=== PATIENT | female | born 1950 | race Caucasian/White ===

== ENCOUNTER 2018-08-25 10:35 | Outpatient (CLI) | payer BC, SELFPAY ==
[2018-08-25 13:50] LABS: Cholesterol 230 mg/dL (50-200); HDL Cholesterol 80 mg/dL (40-60); LDL CHOLESTEROL 131 mg/dL (<100); Triglyceride 103 mg/dL (30-150)
== END 2018-08-25 10:55 ==
PROVIDERS: PCP Family Medicine; Visit Provider Family Medicine
DX: I10 Essential (primary) hypertension (principal); Z00.00 Encounter for general adult medical examination without abnormal findings
CPT/HCPCS: 36415; 80061; 83721

== ENCOUNTER 2018-09-03 00:40 | Outpatient (CLI) | payer BC, SELFPAY ==
--- NOTE | 2018-09-03 15:47 | DI.MAMMO_ITS ---
SYMPTOMS/DIAGNOSIS: SCREENING, Z12.31 MAMMOGRAMS: Mammograms were interpreted according to the usual protocol including computer analysis with CAD system, tomosynthesis and C view imaging. Comparison is with the prior examinations. No suspicious masses or microcalcifications are seen. In the right breast, there is an asymmetric density in the inferior retroareolar region on the mediolateral oblique view. This area should be further evaluated with a spot compression view. Ultrasound may be indicated at that time. IMPRESSION: Additional views of the right breast as described above. Category 0, breast density B. MQSA ASSESSMENT OF FINDINGS: Incomplete: Needs additional imaging evaluation. Category 0. Patient will receive a letter notifying them of these results. BI-RADS category B. There are scattered areas of fibroglandular density.
== END 2018-09-03 01:00 ==
PROVIDERS: PCP Family Medicine; Visit Provider Family Medicine
DX: Z12.31 Encounter for screening mammogram for malignant neoplasm of breast (principal); R92.8 Other abnormal and inconclusive findings on diagnostic imaging of breast
CPT/HCPCS: 77063; 77067

== ENCOUNTER 2018-09-10 01:18 | Outpatient (CLI) | payer BC, SELFPAY ==
--- NOTE | 2018-09-10 13:45 | DI.COMBO_ITS ---
SYMPTOMS/DIAGNOSIS: F/U ABNORMAL MAMMO, ASYMMETRIC DENSITY ADDITIONAL VIEWS OF THE RIGHT BREAST AND RIGHT BREAST ULTRASOUND: A follow-up medial and lateral compression spot film of the right breast was obtained today. Nonspecific radiodensities are identified. No discrete mass is seen. At ultrasound, no cyst or mass is identified. SUMMARY: No evidence of malignancy, category 1. Yearly screening mammography is recommended. Breast density category B. MQSA ASSESSMENT OF FINDINGS: Negative. Category 1. Patient will receive a letter notifying them of these results. BI-RADS category B. There are scattered areas of fibroglandular density.
== END 2018-09-10 01:38 ==
PROVIDERS: PCP Family Medicine; Visit Provider Family Medicine
DX: Z12.31 Encounter for screening mammogram for malignant neoplasm of breast (principal); R92.8 Other abnormal and inconclusive findings on diagnostic imaging of breast; N64.59 Other signs and symptoms in breast
CPT/HCPCS: 76642; 77063; 77067

== ENCOUNTER 2019-04-14 08:47 | Outpatient (CLI) | payer BC, SELFPAY ==
[2019-04-14 11:42] LABS: ALT 40 U/L (12-78); AST 21 U/L (15-37); Albumin 3.9 g/dL (3.4-5.0); Alkaline Phosphatase 81 U/L (46-116); Anion Gap 11.5 mmol/L (3-11); BUN 20 mg/dL (7-18); Bilirubin, Total 0.6 mg/dL (0.2-1.0); CO2 26.5 mmol/L (21.0-32.0); CREATININE 0.72 mg/dL (0.55-1.02); Calcium 8.7 mg/dL (8.5-10.1); Calculated LDL 151 mg/dL; Chloride 103 mmol/L (98-107); Cholesterol 252 mg/dL (50-200); Glucose 98 mg/dL (70-100); HDL Cholesterol 82 mg/dL (40-60); Potassium 4.2 mmol/L (3.5-5.1); Sodium 141 mmol/L (136-145); Triglyceride 99 mg/dL (30-150)
== END 2019-04-14 09:07 ==
PROVIDERS: PCP Family Medicine; Visit Provider Family Medicine
DX: I10 Essential (primary) hypertension (principal)
CPT/HCPCS: 36415; 80053; 80061; 83721

== ENCOUNTER 2019-07-03 00:18 | Outpatient (CLI) | payer BC, SELFPAY ==
--- NOTE | 2019-07-03 08:35 | DI.RAD_ITS ---
EXAM: XR HIP RT COMPLETE AP PELVIS INDICATION: r hip pain, M25.559. COMPARISON: RIGHT HIP COMPLETE from 08/27/2011 TECHNIQUE: 2D digital imaging was performed. FINDINGS: Severe DJD involving the right hip is demonstrated. There is joint space narrowing, articular scler osis and periarticular hypertrophic spurring. There is no evidence of a fracture or dislocation.
== END 2019-07-03 00:38 ==
PROVIDERS: PCP Family Medicine; Visit Provider Family Medicine
DX: M25.551 Pain in right hip (principal); M16.11 Unilateral primary osteoarthritis, right hip
CPT/HCPCS: 73502

== ENCOUNTER 2019-07-17 06:59 | Day surgery (SDC) | payer BC, SELFPAY ==
[2019-07-17 07:14] VITALS: BP 154/83; PULSE 72; RESP 16; TEMP 35.8; O2SAT 97
[2019-07-17] MEDS: Lactated Ringers 1,000 ML 80 ML IV (07:37)
--- NOTE | 2019-07-17 07:59 | HPE_ITS ---
Date of service: 07/17/19 Time of Service: 07:59 Assessment and Plan Assessment and plan (1) Polyp of colon: Status: Chronic Assessment and plan: I advised colonoscopy. The procedure was described including the risks of perforation with need for surgery or bleeding. Prep instructions discussed. Patient agrees to proceed. History of Present Illness Narrative: 68 y/o female with history of HTN, Diverticulosis, GERD and hiatal hernia presents for colonoscopy screening. Her last screening was in 2013, which was remarkable for polyp. With recommended follow up in 5 years. She denies a family history of colon cancer. She denies any changes in bowel habits, stating that she has IBS and her BMs have always fluctuated based on what she eats. Denies bloody, black tarry stools or abdominal pain. She denies constitutional symptoms. Denies use of marijuana or any other recreational or illegal drugs. She denies chest pain, palpitations, dyspnea or dyspnea with exertion. She walks and bikes regularly for exercise. She uses Spirva inhaler PRN with good effect. She denies prior history or family history of adverse reactions or complications with anesthesia. Review of Systems Constitutional Constitutional: Denies fatigue and Denies headache(s) Eyes Eyes: Denies change in vision ENT Ears, Nose, Mouth, and Throat: Denies headache(s) and Denies neck mass Cardiovascular Cardiovascular: Denies chest pain, Denies edema, Denies palpitations and Denies dyspnea Respiratory Respiratory: Denies cough, Denies dyspnea and Denies wheezing Gastrointestinal Gastrointestinal: Denies abdominal pain, Denies hematochezia and Denies change in bowel habits Genitourinary Genitourinary: Denies abnormal vaginal bleeding and Denies dysuria Musculoskeletal Musculoskeletal: Denies joint swelling Integumentary/Breasts Skin/Breast: Denies new lesions and Denies rash Neurologic Neurologic: Denies confusion, Denies headache(s) and Denies focal weakness Psychiatric Psychiatric: Reports system reviewed and no additional complaints, except as docu and Denies confusion Endocrine Endocrine: Denies fatigue and Denies palpitations Hematologic/Lymphatic Hematologic/Lymphatic: Denies easy bleeding and Denies lymphadenopathy Allergic/Immunologic Allergic/Immunologic: Denies wheezing [facility] Medical History Actinic keratosis (Chronic 03/11/17) Anxiety (Chronic 10/27/13) Bilateral carpal tunnel syndrome (Inactive 11/03/14) Cervical spondylosis (Chronic) Cyst of ovary (Inactive 10/27/13) Diverticulosis of colon without diverticulitis (Chronic) pandiverticulosis 07/25/11 (SIGMOID DIVERTICULOSIS) Dysphagia (Inactive 12/12/12) Essential hypertension (Chronic 06/17/13) Gastroesophageal reflux disease with esophagitis (Chronic 06/18/13) Globus sensation (Chronic 06/18/13) w/u [facility] Headache (Inactive 12/09/12) Heart murmur (Chronic) Hiatal hernia (Chronic 01/07/14) 01/07/14;[facility]; EGD; 1CM HIATUS HERNIA Hypertension Knee pain (Chronic 08/22/04) right; neg x-ray Numbness of face (Resolved 12/09/12) Palpitations (Inactive 12/09/12) Polyp of colon (Chronic) 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; SESSILE SERRATED ADENOMA 01/07/14; [facility]; AWAITING PATH REPORT Surgical History Appendectomy (~11/2013) Surgery was to remove suspected R ovarian cyst. Mass was actually on the appendix and this was removed - [facility] EYE SURGERY B/L History of appendectomy (Inactive) History of bilateral ligation of fallopian tubes (Inactive) History of eye surgery (Inactive) Hx of heart surgery (Chronic) Ligation of fallopian tube Family History Mother , AGE 67 Throat cancer Alcohol abuse FAMILY HISTORY TB (tuberculosis) Father , AGE 27 No problems noted. Sister Hypertension Brother No problems noted. Son Hypertension Social History Smoking/Tobacco Use Status: Former Tobacco Use Quit Date: 09/23/98 Alcohol Intake: current Alcohol Intake frequency: 3 or more drinks per day Alcohol type: wine Drug use: Never Substance use type: does not use current occupation: [employer] Pets and animals: Yes Pets and animals: cat(s) Duration: 45-60 minutes/day Frequency: 1-2 times per week Stella/Confucianist: No preference Special stella needs: No Do you feel safe at home: Yes Do you feel safe in your relationship?: Yes Meds Home Medications and Allergies Home Medications Medication Instructions Recorded Confirmed Type acetaminophen [Tylenol Extra 1,000 mg PO Q4H PRN PRN tab-cap 12/09/12 07/14/19 History Strength] clotrimazole-betamethasone 1 - 2 gm TOPICAL BID PRN #15 gm 05/22/18 07/14/19 History [Lotrisone Cream] ibuprofen 400 mg PO Q6H PRN tab-cap 05/22/18 07/14/19 History umeclidinium 62.5 mcg/actuation 1 inh IH DAILY #90 each 04/13/19 07/14/19 Rx blister powder for inhalation bisacodyl 5 mg tablet,delayed 5 mg PO ONCE #4 tab 06/05/19 07/14/19 Rx release polyethylene glycol 3350 17 238 g PO ONCE #238 gm 06/05/19 07/14/19 Rx gram/dose oral powder prednisone 20 mg tablet See Rx Instructions PO DAILY #11 07/06/19 07/14/19 Rx tab albuterol sulfate 90 mcg/actuation 2 puff INHALATION Q4H PRN #18 gm 07/09/19 07/14/19 Rx aerosol inhaler hydrochlorothiazide 12.5 mg tablet 12.5 mg PO DAILY #90 tab-cap 07/09/19 07/14/19 Rx losartan 100 mg tablet 100 mg PO DAILY #90 tab-cap 07/09/19 07/14/19 Rx paroxetine HCl 20 mg tablet 20 mg PO DAILY #90 tab-cap 07/09/19 07/14/19 Rx multivitamin with minerals [Daily 1 tab PO DAILY 07/14/19 07/14/19 History Multivitamin-Minerals] Allergies Allergy/AdvReac Type Severity Reaction Status Date / Time lisinopril Allergy Intermediate Verified 07/17/19 07:22 amlodipine AdvReac Unknown edema Verified 07/17/19 07:22 diltiazem AdvReac Nausea and Verified 07/17/19 07:22 headaches Exam Const General: healthy appearing and not in acute distress Nutritional Appearance: well nourished Orientation: oriented x3 HENMT Head: normal to inspection Eyes Sclera: sclerae normal Pupils: PERRL Neck Neck: no lymphadenopathy Thyroid: thyroid normal Carotids: no bruits Lymphatic: no lymphadenopathy noted Chest Breast inspection: normal inspection of the axillae Resp Effort & Inspection: normal respiratory effort Auscultation: clear to auscultation bilaterally and no wheezes Cardio Rate: regular rate Rhythm: regular rhythm Pulses: dorsalis pedis pulses present GI Inspection: non-distended Palpation: soft, no hepatosplenomegaly, no hernias and nontender Skin General skin exam: no rashes or lesions noted Neuro General: alert Cognition: normal cognition Extrem General: normal to inspection Psych Affect: normal affect Attitude: cooperative Results Last Vital Signs Temp 96.4 F L 07/17/19 07:14 Pulse 72 07/17/19 07:14 Resp 16 07/17/19 07:14 BP 154/83 H 07/17/19 07:14 Pulse Ox 97 07/17/19 07:14
--- NOTE | 2019-07-17 08:09 | W.PM.DSUDISC ---
Discharge Plan Disposition Patient Disposition: HOME Condition: Good Discharge Details Reason For Visit: Colonoscopy Attending Provider: Alba Soliz Primary Care Provider: Paty Leonardo Home Meds and New Rx's Prescriptions: Continued prednisone 20 mg tablet See Rx Instructions PO DAILY Qty: 11 RF: 0 acetaminophen [Tylenol Extra Strength] 500 MG tablet 1,000 mg PO Q4H PRN PRNRF: 0 ibuprofen 400 MG tablet 400 mg PO Q6H PRN RF: 0 clotrimazole-betamethasone [Lotrisone] 15 GM cream 1 - 2 gm Topical BID PRNQty: 15 RF: 2 Incruse Ellipta 62.5 mcg/actuation blister with device 1 inh IH DAILY Qty: 90 RF: 5 albuterol sulfate [ProAir HFA] 90 mcg/actuation HFA aerosol inhaler 2 puff Inhalation Q4H PRN Qty: 18 RF: 4 hydrochlorothiazide 12.5 mg tablet 12.5 mg PO DAILY Qty: 90 RF: 12 losartan 100 mg tablet 100 mg PO DAILY Qty: 90 RF: 12 paroxetine HCl 20 mg tablet 20 mg PO DAILY Qty: 90 RF: 12 multivitamin with minerals [Daily Multivitamin-Minerals] Tablet 1 tab PO DAILY RF: 0 Discontinued polyethylene glycol 3350 17 gram/dose powder 238 g PO ONCE Qty: 238 RF: 0 bisacodyl [Dulcolax (bisacodyl)] 5 mg tablet,delayed release (DR/EC) 5 mg PO ONCE Qty: 4 RF: 0 Discharge Instructions Additional Instructions: Findings: Your colonoscopy showed diverticulosis. NO polyps were found. Follow up: Plan for colonoscopy in 5 years. Please call if you develop: fevers >101.5 Nausea or Vomiting Abdominal pain that is not transient DAY SURGERY UNIT POST COLONOSCOPY INSTRUCTIONS 1. Because there will be medication in your system for the next 24 hours, you may feel a little sleepy. Your coordination will be affected. Therefore: a. Do not drive or operate dangerous equipment for 24 hours. b. Do not drink alcohol beverages for 24 hours (not even beer). c. Plan to go home and rest for the day. 2. Generally there are no restrictions on your activity after a day or so has gone by, but you may feel a bit fatigued for a few days. 3 After you arrive home you may have a light meal and return to a normal diet as you can tolerate it without feeling sick to your stomach. 4. After surgery, you may feel pain or discomfort. This should be only transient, but if it persists please contact your doctor. 5. If there are any questions regarding the findings of your procedure, please feel free to contact your doctor. 6. If you are unable to contact your doctor with a problem, contact the hospital at [phone]. 7. Continue all your regular medications unless directed otherwise. I understand the above instructions and have no questions. Signature of Patient or Responsible Adult Escort Date/Time Name of Responsible Adult Escort Signature of Nurse Date/Time Activity:: Activity as Tolerated Diet:: As Tolerated Discharge Orders Discharge Orders: Discharge Order (Routine); Ordered 07/17/19 Ordered By: Alba Soliz DS: Diagnosis Discharge Diagnosis (1) Diverticulosis: Status: Acute
[2019-07-17 09:25] VITALS: BP 137/66; PULSE 62; RESP 17; TEMP 35.9; O2SAT 99
--- NOTE | 2019-07-20 09:51 | COLE_ITS ---
DATE OF PROCEDURE: July 17, 2019 PREOPERATIVE DIAGNOSIS: History of polyps. POSTOPERATIVE DIAGNOSIS: Diverticulosis PROCEDURE: Colonoscopy SURGEON: Alba Soliz M.D. ANESTHESIA: General. INDICATIONS: This is a 68-year-old woman whose colonoscopy in 2013 showed colon polyps. She presents for routine follow-up. PROCEDURE: She was placed in the left Heredia position. Propofol was titrated to sedation. Digital rectal examination revealed no abnormalities. The scope was advanced to the cecum without difficulty. The ileocecal valve and appendiceal orifice were clearly identified. Her prep was good. The scope was slowly withdrawn with no abnormalities seen within the ascending, transverse or descending colon. The sigmoid colon showed evidence of diverticulosis. The rectum was normal, including on retroflex view. She tolerated the procedure well and was stable to recovery. She will need a follow-up colonoscopy again in five years. cc: Paty Leonardo M.D.
== END 2019-07-17 09:43 | disposition home or self-care (01) ==
PROVIDERS: PCP Family Medicine; Visit Provider Surgery
PROC: 0DJD8ZZ Inspection of Lower Intestinal Tract, Via Natural or Artificial Opening Endoscopic (ICD-10-PCS; CPT 45378; principal; 2019-07-17 08:15)
DX: Z12.11 Encounter for screening for malignant neoplasm of colon (principal); Z86.010 Personal history of colon polyps; K57.30 Diverticulosis of large intestine without perforation or abscess without bleeding; I10 Essential (primary) hypertension
CPT/HCPCS: 45378; NC

== ENCOUNTER 2020-04-08 09:40 | Outpatient (CLI) | payer BC, SELFPAY ==
--- NOTE | 2020-04-08 09:00 | DI.RAD_ITS ---
EXAM: XR PELVIS AP CLINICAL HISTORY: mag marker TECHNIQUE: COMPARISON: CR XR HIP RT COMPLETE AP PELVIS from 07/03/2019 FINDINGS: AP view of the pelvis with marker ball was obtained. There are severe degenerative changes of both h ips with marked loss of the cartilaginous joint space, subchondral sclerosis of the adjacent bones bi laterally, and prominent hypertrophic changes of acetabula and femoral heads. IMPRESSION:
== END 2020-04-08 10:00 ==
PROVIDERS: PCP Family Medicine; Referring Provider Family Medicine; Visit Provider Physician Assistant
DX: M25.551 Pain in right hip (principal); M16.0 Bilateral primary osteoarthritis of hip
CPT/HCPCS: 72170

== ENCOUNTER 2020-04-15 01:36 | Outpatient (CLI) | payer BC, SELFPAY ==
[2020-04-15 11:15] LABS: HCT 38.8 % (36.0-46.0); Mean Corp. HGB Concentration 33.5 g/dL (32.0-36.0); Mean Corpuscular Hemoglobin 31.6 pg (27.0-33.0); Mean Corpuscular Volume 94.2 fL (80-95); Mean Platelet Volume 9.6 fL (8.0-11.0); Platelet Count 196 x1000/uL (130-400); RBC 4.12 m/cumm (4.00-5.20); RBC Distribution Width 12.6 % (11.7-14.6); White Blood Cell Count 5.02 k/cumm (4.4-10.8)
== END 2020-04-15 01:56 ==
PROVIDERS: PCP Family Medicine; Visit Provider Student in an Organized Health Care Education/Training Program
DX: M16.11 Unilateral primary osteoarthritis, right hip
CPT/HCPCS: 36415; 80053; 80061; 85027; 86850; 86900; 86901

== ENCOUNTER 2020-04-16 07:23 | Outpatient (CLI) | payer BC, SELFPAY ==
[2020-04-20 03:12] LABS: COVID-19 RT-PCR Result NEGATIVE (Negative)
== END 2020-04-16 07:43 ==
PROVIDERS: PCP Family Medicine; Visit Provider Student in an Organized Health Care Education/Training Program
DX: M16.11 Unilateral primary osteoarthritis, right hip (principal); Z01.818 Encounter for other preprocedural examination
CPT/HCPCS: U0003

== ENCOUNTER 2020-04-20 11:03 | Observation (INO) | payer BC, SELFPAY ==
[2020-04-20] VITALS (13 sets, daily range): BP systolic 71–146; BP diastolic 36–72; PULSE 60–83; RESP 12–18; TEMP 35.7–36.6; O2SAT 94–100
[2020-04-20] MEDS: Celecoxib 200 MG CAP 400 MG PO (11:47)
[2020-04-20] MEDS: Acetaminophen 500 MG TAB 1000 MG PO ×2 (11:47→19:52)
[2020-04-20] MEDS: Lactated Ringers 1,000 ML 80 ML IV ×3 (11:58→19:56)
[2020-04-20] MEDS: ceFAZolin 2 GM/50 ML BAG IVPB (12:57)
[2020-04-20] MEDS: Bupivacaine 0.25% Pres-Free 30 ML VIAL (13:38)
[2020-04-20] MEDS: Ketorolac 30 MG/ML VIAL (13:38)
--- NOTE | 2020-04-20 14:17 | DI.RAD_ITS ---
EXAM: XR HIP RT IN OR CLINICAL HISTORY: Primary osteoarthritis of right hip. TECHNIQUE: 2D and realtime digital imaging was performed. COMPARISON: No exams were available for comparison FINDINGS: Hard copy images show placement of a right hip prosthesis. The components appear well aligned. Please see procedure note for details. FLUORO TIME: 49.0 seconds RADIATION DOSE DELIVERED:
--- NOTE | 2020-04-20 14:35 | W.PM.DS.N ---
Date of service: 04/20/20 Time of Service: 16:54 DS: Diagnosis Discharge Diagnosis (1) Primary osteoarthritis of right hip: Status: Chronic Discharge Plan Disposition Patient Disposition: HOME Condition: Good Discharge Details Reason For Visit: Right hip DJD Admit Date/Time: 04/20/20 11:03 Admit Provider: Carlyle Tolentino Attending Provider: Carlyle Tolentino Primary Care Provider: Paty Leonardo [facility] Course Hospital Course: Patient was admitted to the medical/surgical floor following the procedure. The surgery was tolerated well without any notable medical, surgical, or anesthetic complications. Mobilization began postoperatively. She was voiding spontaneously. Vitals were stable. Physical therapy worked with the patient and was cleared for discharge home. No acute medical issues. Pain was controlled on oral regimen. Home Meds and New Rx's Prescriptions: New celecoxib 200 mg capsule 200 mg PO BID PRN (Reason: pain) Qty: 60 RF: 1 aspirin 81 mg tablet,delayed release (DR/EC) 81 mg PO BID Qty: 60 RF: 0 acetaminophen 500 mg tablet 1,000 mg PO Q8H PRN (Reason: pain) Qty: 90 RF: 3 pantoprazole 40 mg tablet,delayed release (DR/EC) 40 mg PO DAILY Qty: 30 RF: 0 docusate sodium [Colace] 100 mg capsule 100 mg PO BID PRNQty: 10 RF: 0 oxycodone 5 mg tablet 5 mg PO Q4H Qty: 12 RF: 0 Continued clotrimazole-betamethasone [Lotrisone] 1-0.05 % cream 1 applic Topical BID PRN (Reason: rash) Qty: 45 RF: 1 psyllium husk [Fiber (psyllium husk)] 0.4 gram capsule 0.4 gm PO TID RF: 0 Incruse Ellipta 62.5 mcg/actuation blister with device 1 inh IH DAILY Qty: 90 RF: 5 albuterol sulfate [ProAir HFA] 90 mcg/actuation HFA aerosol inhaler 2 puff Inhalation Q4H PRN Qty: 18 RF: 4 hydrochlorothiazide 12.5 mg tablet 12.5 mg PO DAILY Qty: 90 RF: 12 losartan 100 mg tablet 100 mg PO DAILY Qty: 90 RF: 12 paroxetine HCl 20 mg tablet 20 mg PO DAILY Qty: 90 RF: 12 multivitamin with minerals [Daily Multivitamin-Minerals] Tablet 1 tab PO DAILY RF: 0 Discontinued naproxen 500 mg tablet 500 mg PO BID PRN (Reason: pain) Qty: 180 RF: 4 acetaminophen [Tylenol Extra Strength] 500 MG tablet 1,000 mg PO Q4H PRN PRNRF: 0 ibuprofen 400 MG tablet 400 mg PO Q6H PRN RF: 0 Discharge Instructions Additional Instructions: Dr. Tolentino's Total Hip Discharge Instructions Activity: The most important activity is to walk. You should try to take short walks a few times a day. You have no restrictions on movement or positioning, but do not try to force what you do. You will find some stiffness and weakness with hip flexion (lifting your knee). Do not try to strengthen this too early, continue to practice walking and stairs and this will come. - Outpatient physical therapy can be helpful to help return you to a normal gait and improve your flexibility and strength. This can start around 2 weeks. For most patients, it?s not necessary. Usually this is determined at the time of discharge or at the first post-operative visit. - You should wear the AMAN hose on both legs for 2 weeks. You may remove those at night. These prevent blood pooling and swelling. Dressing: Keep the surgical dressing in place for at least one week, although it may stay in place untill follow-up. It may get wet after 3 days but avoid soaking the dressing. If it gets wet, just lightly pat dry. Most people prefer to cover the dressing with some ClingWrap, Saran Wrap, to keep it dry. After the first week it may be removed if desired and then replaced with light gauze and tape or nothing. It is important to always keep some gauze or the dressing between skin folds, especially when you are sitting, so the incision is not folded over on itself at the belly fold. Medications: - You should take Tylenol and an anti-inflammatory Celebrex as your primary pain control medications. If Celebrex is not covered or is too expensive you may use the Naproxen 500mg twice a day. - You have been prescribed a stronger pain medication Oxycodone for breakthrough pain, take as needed as prescribed. - You have also been prescribed a stomach acid reduction agent Pantoprozole to help reduce stomach acid and reflux. - You will be taking Aspirin 81mg twice a day for DVT prevention unless instructed otherwise. - If you have constipation you should take Colace or Miralax (both [id number]). Colace was called in. It takes most people 3-4 days to have a bowel movement. Follow-up: 2 weeks. If you have any acute concerns or questions, please do not hesitate to contact the office at [phone]. You may contact Dr. Tolentino with any questions after hours through the hospital at [phone] or on his cell phone at [phone]. Referrals: Carlyle Tolentino MD [ [facility] ST[facility]FF PHYSICIAN] - 05/05/20 10:00 am Activity:: Activity as Tolerated Equipment/Supplies:: Walker Diet:: As Tolerated Discharge Orders Discharge Orders: Discharge Order (Routine); Ordered 04/20/20 Ordered By: Carlyle Tolentino DS: Summary Status at Discharge Functional status at discharge: uses cane/walker Overall status at discharge: patient is progressing back to baseline Mental Status: mental status grossly normal Speech and Movement: speech and movement normal Mood: congruent mood Affect: normal affect Exam Psych Mental Status: mental status grossly normal Speech and Movement: speech and movement normal Mood: congruent mood Affect: normal affect DS: Data Vitals/I&O Vitals and I&O: Vital Signs Temperature 36.4 C L 04/20/20 11:16 Pulse 83 04/20/20 11:16 Pulse Rhythm Regular 04/20/20 11:16 Respiratory Rate 16 04/20/20 11:16 Respiratory Effort 04/20/20 11:16 Respiratory Depth Deep 04/20/20 11:16 Respiratory Pattern Normal 04/20/20 11:16 Blood Pressure 146/69 H 04/20/20 11:16 Pulse Oximetry 95 04/20/20 11:16 Oxygen Delivery Method Room Air 04/20/20 11:16 Oxygen Flow Rate 0 04/20/20 11:16 Pain Level 2 04/20/20 11:16 Intake & Output 04/19/20 04/20/20 04/20/20 23:59 11:59 23:59 Intake Total 1110 / 1110 Output Total 250 / 250 Balance 860 / 860 Weight 68.7 kg Intake: IV 1110 / 1110 Output: Estimated Blood Loss 250 / 250 [facility] Medical History Actinic keratosis (Chronic 03/11/17) Anxiety (Chronic 10/27/13) on medication Bilateral carpal tunnel syndrome (Inactive 11/03/14) Bronchitis (Inactive) Cervical spondylosis (Chronic) Cyst of ovary (Inactive 10/27/13) Diverticulosis of colon without diverticulitis (Chronic) pandiverticulosis 07/25/11 (SIGMOID DIVERTICULOSIS) Dysphagia (Inactive 12/12/12) Essential hypertension (Chronic 06/17/13) Gastroesophageal reflux disease with esophagitis (Resolved 06/18/13) Globus sensation (Resolved 06/18/13) [place] [facility] [place]ache (Inactive 12/09/12) Heart murmur (Inactive) Hiatal hernia (Chronic 01/07/14) [place]; 1CM HIATUS HERNIA Hypertension Knee pain (Chronic 08/22/04) right; neg x-ray Numbness of face (Resolved 12/09/12) Palpitations (Inactive 12/09/12) Polyp of colon (Chronic) 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; SESSILE SERRATED ADENOMA 01[place]07/14[place] [facility] RE[place] Smoker (Inactive) Tachycardia (Inactive 12/21/15) Surgical History History of appendectomy (Inactive) Surgery was to remove suspected R ovarian cyst. Mass was actually on the appendix and this was removed - [facility] History of bilateral ligation of fallopian tubes (Inactive) History of eye surgery (Inactive) B/L Hx of heart surgery (Chronic) Status post arthroscopy of left knee (Acute) lateral release Family History Mother , AGE 67 Throat cancer Alcohol abuse Depression Hypertension FAMILY HISTORY TB (tuberculosis) Father , AGE 27 No problems noted. Sister Hypertension Brother Diabetes Heart disease Hypertension Stroke Son Hypertension Social History Smoking/Tobacco Use Status: Former Tobacco Use Quit Date: 09/23/98 Tobacco: How many years used: 19 Alcohol Intake: current Alcohol Intake frequency: 0-2 drinks per day Alcohol type: wine Drug use: Never Substance use type: does not use Caregiver/Support person: No Household members: significant other Housing: house Communication Needs: None Do you need help understanding health information?: Rarely current occupation: [employer] Pets and animals: Yes Pets and animals: cat(s) Sexually active: Yes Do you think of yourself as: straight/heterosexual Current gender identity: female What is your relationship status?: living with partner How often do you talk on the phone with friends or family?: once per week How often do you get together with friends or relatives?: once per week How often do you attend pentecostal or faith services?: 1-3 times per year Do you belong to any clubs or organized social groups?: no Panel score (0-1 are the most socially isolated patients): 1 Frequency: 1-2 times per week Stella/Rastafarian: None Special stella needs: No Seatbelt use: always Helmet use: Yes Helmet use: always Drive intox 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
--- NOTE | 2020-04-20 16:11 | W.PM.OP ---
Date of service: 04/20/20 Time of Service: 14:45 Operative Note Operative Note DATE OF PROCEDURE: 04/20/20 PRE-OP DIAGNOSIS: Right Hip Osteoarthritis POST-OP DIAGNOSIS: same PROCEDURE: Right Anterior Total Hip Arthroplasty SURGEON: Carlyle Tolentino MANAGER AMBULATORY: Elizabeth Hoffmann ANESTHESIA: spinal ESTIMATED BLOOD LOSS: 200 PATHOLOGY: none sent TOURNIQUET TIME: 0 COMPLICATIONS: None Patient was transported to: PACU Patient's condition: stable Implants: 1. Depuy Arthur Acetabular Component, 50mm 2. Depuy Acetabular Liner, 10v09fr 3. Depuy Corail Standard 125 Collared Femoral Stem, Size 11 4. Depuy Altrx Ceramic Femoral Head, Size 32+5mm Indications: I have seen Helen in clinic for symptoms of hip arthritis, confirmed with radiographic findings. She has exhausted nonoperative methods and was having significant limitations in daily function and desired better function and less pain. I discussed the technical details of a hip replacement. I explained the risks of the procedure to include, but not limited to, bleeding, infection, pain, stiffness, fracture, damage to nerves and vessels, damage to muscles and tendons, loosening, instability, leg length inequality, need for repeat procedure, blood clot and cardiopulmonary demise. Despite these risks, she elected to proceed. Findings: There was significant signs of arthritis throughout the hip. Procedure Description: Helen was greeted in the preoperative holding area where the correct side was identified and marked. The consent was reviewed with the patient and signed. The history and physical was updated. All questions were answered. She was taken back to the operating room. A spinal anesthestic was then administered. The patient was placed into the supine position on the operating room table. The patient was then positioned onto the ARCH table. Both feet were wrapped with Webrill cotton wrap along with Coban. The feet were placed in specialized boots for the ARCH table, well seated within the boot and secured. SCDs were applied. The patient was then slid down onto a peroneal post and the nonoperative leg was secured in a leg clarke attached to the table. The operative side was placed into the ARCH table attachment and bed height and positioning was secured. A preoperative AP pelvis was obtained to serve as a reference for determining leg lengths. Prophylactic antibiotics in the form of Cefazolin were administered. 1g of Tranxemic Acid was given intravenously within 30 minutes of incision. The right leg was then prepped with Chloraprep and draped in a standard fashion. A second prep with Chloraprep was performed prior to placement of a shower-curtain type drape with Iodine impregnated skin protection. A timeout to confirm correct identity, side and site, procedure, allergies, anesthesia, and medical concerns was performed. An obliquely oriented incision was made starting lateral to the ASIS and running distal over the Tensor Fascia Keisha (TFL) muscle belly toward the fibular head, approximately 10cm. The skin and soft tissue was dissected sharply, through Pj?s fascia, and to the fascia of the TFL. With the fascia and superior border of the IT band identified, the fascia was incised with a new knife just above any perforators from the IT band. The TFL muscle belly was bluntly dissected away from the fascia and moved laterally. The fat between TFL and rectus was identified to ensure the dissection was not within the TFL. Blunt dissection created space between abductors and the capsule and retractor was placed over the lateral femoral neck. The fibers of the rectus femoris tendon were identified and these were freed from the anterior capsule. A second cobra retractor was placed around the medial femoral neck. The TFL was further retracted laterally to show the deep fascia. Careful dissection through this layer identified three main crossing vessels of the lateral femoral circumflex. These were cauterized in multiple locations and then cut without any noticeable bleeding. The TFL was further released bluntly from the deep fascia to expose anterior hip capsule and fat The Zaki orthopaedic retractor was then placed beneath the TFL and against sartorius and medial soft tissues to protect and retract the soft tissues. A T-capsulotomy was then performed starting at the superior lateral acetabulum and moving distally to the intertrochanteric ridge. These capsular flaps were tagged with a No. 1 Ethibond and elevated from within. The capsular flaps were released to the shoulder of the lateral neck and to the lesser trochanter to give excellent visualization of the proximal femur. A neck osteotomy was performed using an oscillating saw based on preoperative templates. This cut started in the shoulder and of the lateral neck and exited medially. The saw was at all times directed medially to avoid injury to the greater trochanter. 6cm of traction was applied to the leg and the osteotomy opened. The femoral head was removed with a corkscrew, making sure to protect the TFL on its exit. This was measured on the back table to determing the starting reamer size. Portions of the rectus obscuring visualization were minimally elevated off the superior acetabulum. An anterior retractor was placed over the anterior wall between capsule and labrum and attached to the Gripper retraction system. A posterior retractor was placed similarly. This provided excellent visualization. The contents of the cotyloid fossa were removed with electrocautery and the labrum was removed with a knife. There was a notable floor osteophyte. There was significant chondromalacia of the superior acetabulum. Acetabular reaming began with a 46mm reamer. This first reaming was directed anterior to posterior and medial to get down to the true floor. This was inspected and reamed until the true floor was reached. The anterior retractor was then released and entry and exit was provided by traction on the capsular flaps. I then reamed sequentially up to a 50mm reamer where good fit was obtained. The larger reamers were oriented based on anatomical reference of the anterior and lateral devlin to ensure proper abduction and anteversion. Positioning and size was confirmed with the fluoroscopy. A 50mm Depuy Arthur acetabular component was selected. The acetabulum was reamed around the periphery with the selected acetabular size to prevent a rim fit. The deep tissues were irrigated. The acetabular component was then impacted in a position of about 40-45 degrees of abduction and 15-20 degrees of anteversion, using the patient?s anatomy as the ultimate landmark. Fluoroscopy was used to confirm this. There was excellent assembler aircraft power plant of the acetabular component and the inserting handle was removed. The acetabular liner, Depuy [id number] polyethylene liner, was inserted and lined up with the tines of the acetabular component. There was no soft tissue interposition. The liner was then impacted into position and confirmed to be well-seated. A portion of the yessenia-articular cocktail was then injected around the acetabulum into the capsule and periosteum. This cocktail consisted of 50cc of 0.25% Bupivicaine and 20cc of Exparel, expanded to a total of 120cc. Traction was released from the femur. The leg was rotated to 120 degrees. Any remaining medial capsule was released until the lesser trochanter was easily palpable. A Stauffer retractor was placed medially. The lateral capsule was further released into the shoulder to allow access to the greater trochanter. A Stauffer retractor was placed over the greater trochanter which allowed the trochanter to flip in front of the capsule for excellent exposure. The leg was brought down into maximal extension and 20 degrees of adduction while ensuring there was no impingement on the acetabulum. Any remnant capsule within the trochanter was released. Piriformis and obturator externis were identified and protected. There was excellent access to the proximal femur. The lateral neck remnant was removed with a rongeur. A blunt canal probe was used to identify the canal and trajectory for later broaching. A box osteotome initiated the broach course. A small curved rasp and a curved curette were used to work laterally. Broaching then began with a size 8 Corail broach. This was inserted manually around the trochanter and into the canal before mallet blows. The broach was seated to a few millimeters below the cut level based on the neck cut and the preoperative template. Sequential broaching was continued with the BroadHop pneumatic broaching device until a tight fit was obtained with good rotational control of the femur. There was a small crack noted on the posterior calcar. However, after planing the femoral neck, the fracture was not present and stable. A trial standard 125 neck was inserted along with a +5 trial head. The leg was brought out of extension and adduction and then reduced with traction and internal rotation. The leg was stable anteriorly in a position of 30 degrees of extension and 90 degrees of external rotation. Fluoroscopy was used to ensure there was no fracture and the stem was seated well. Leg lengths were checked with an AP pelvis and pelvic reference points. [employer] navigation system was used to confirm appropriate positioning and leg length and offset. Once content with the desired offset and leg lengths, the leg was brought back into extension, external rotation and adduction. The periosteum and surrounding tissue was injected with remaining portion of the yessenia-articular cocktail. The proximal femur was irrigated as well as the deep tissues. The Depuy Corail standard 125 collared stem, size 11, was then manually inserted into the proximal femur making sure to control rotation. It was then malleted into position with light blows, giving breaks to allow bone expansion and decrease risk of fracture. The selected Depuy Altrx Ceramic Head, size 32=5mm, was then placed onto the clean and dry trunnion and secured with impaction onto the tapered fit. The leg was brought back out of extension and adduction and reduced with traction and internal rotation. Stability was confirmed with no shuck at 90 degrees of external rotation and 30 degrees of extension. No impingement through range of motion arc. Final x-ray images were obtained with fluoroscopy to confirm adequate positioning and no intraoperative fracture. The deep tissues were thoroughly irrigated with Irrisept chlorhexadine solution. The second dose of TXA 1g was administered intravenously.The capsule was then reapproximated with the previously placed Ethibond sutures. The TFL fascia was finally closed with a No. 2 Stratafix, barbed suture. Deep tissues were then reapproximated with 0 Vicryl and a running 2-0 Vicryl. The skin was closed with a running 4-0 Monocryl in a subcuticular fashion. This was reinforced with skin glue. A Mepilex silver dressing was applied. At the end of the case, all counts were correct. Helen was transferred to the hospital bed without difficulty and suffering the small calcar crack which was not displacable, mostly planed out, and contained. Helen has a good prognosis. Physical therapy will start today and without restrictions, weight-bearing as tolerated. Aspirin 81mg BID will be used for DVT prophylaxis.
[2020-04-20] MEDS: oxyCODONE 5 MG TAB PO (16:16)
--- NOTE | 2020-04-20 16:58 | IN_ITS ---
Date of service: 04/20/20 Time of Service: 16:58 PT Notes Visit Reasons: Right hip DJD Physical Therapy Inpatient Initial Evaluation Date: 04/20/2020 Referring Doctor: Carlyle Tolentino MD PT Orders: PT CONSULT: Status post Ortho surgery Precautions: Fall. Standard. WBAT on right LE. Patient Profile/Admitting Diagnosis: Helen is a 69-year-old female with primary unilateral osteoarthritis of the right hip and is status post right total hip arthroplasty on postoperative day 0. PMHX: Medical History (Updated 04/08/20 @ 09:43 by Elizabeth Hoffmann) Actinic keratosis (Chronic 03/11/17) Anxiety (Chronic 10/27/13) on medication Bilateral carpal tunnel syndrome (Inactive 11/03/14) Bronchitis (Inactive) Cervical spondylosis (Chronic) Cyst of ovary (Inactive 10/27/13) Diverticulosis of colon without diverticulitis (Chronic) pandiverticulosis 07/25/11 (SIGMOID DIVERTICULOSIS) Dysphagia (Inactive 12/12/12) Essential hypertension (Chronic 06/17/13) Gastroesophageal reflux disease with esophagitis (Resolved 06/18/13) Globus sensation (Resolved 06/18/13) w/u [facility] [place] Headache (Inactive 12/09/12) Heart murmur (Inactive) Hiatal hernia (Chronic 01/07/14) 01/07/14;[facility] [place]; EGD; 1CM HIATUS HERNIA Hypertension Knee pain (Chronic 08/22/04) right; neg x-ray Numbness of face (Resolved 12/09/12) Palpitations (Inactive 12/09/12) Polyp of colon (Chronic) 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; SESSILE SERRATED ADENOMA 01/07/14; [facility] [place]; AWAITING PATH REPORT Smoker (Inactive) Tachycardia (Inactive 12/21/15) Surgical History (Updated 04/08/20 @ 09:46 by Elizabeth Hoffmann) History of appendectomy (Inactive) Surgery was to remove suspected R ovarian cyst. Mass was actually on the appendix and this was removed - [facility] [place] History of bilateral ligation of fallopian tubes (Inactive) History of eye surgery (Inactive) B/L Hx of heart surgery (Chronic) Status post arthroscopy of left knee (Acute) lateral release Social History/Home Situation: Helen lives with are in a private home with 9 steps to enter and 2 rails that are a little far apart. Another set of 10 steps lead to the bedroom on the second floor. She is independent with all aspects of ADL prior to surgery not needing any assistive ambulatory device nor adaptive equipment. Equipment Owned/DME: None Subjective: Patient reports 2/10 pain in the right hip at rest that increased to 3?4/10 with movement and weight bearing. She indicated that she would want to go home if cleared by orthopedic surgeon today. After a short distance ambulation she reported seeing pink dots and and that her vision was starting to tunnel in. Nurse transformer shop supervisor Kandis was a right away informed about patient's status. Patient indicated that she was given oxycodone an hour before this session. She states that she has not had anything to eat since last night. Objective: General Observation: Patient lying in bed. Mepilex Ag over surgical incision. IV in the right UE. Bilateral TEDS on. Cold pack for right hip. Mental Status: Alert and oriented x4 Pain: 2/10 at rest, 3?4/10 with movement Vital Signs: Mary had a hypotensive episode with BP 71/40 mmHg taken by nurse Kandis after a very short distance ambulation. ROM: Right Upper Extremity: Shoulder Flexion WFL. Shoulder abduction WFL. Elbow flexion WFL. Wrist flexion WFL. Opening and closing of hand WFL. Left Upper Extremity: Shoulder Flexion WFL. Shoulder abduction WFL. Elbow flexion WFL. Wrist flexion WFL. Opening and closing of hand WFL. Right Lower Extremity: Hip flexion WFL. Hip abduction WFL. Knee flexion WFL. Ankle dorsiflexion WFL. Ankle plantarflexion WFL. Left Lower Extremity: Hip flexion WFL. Hip abduction WFL. Knee flexion WFL. Ankle dorsiflexion WFL. Ankle plantarflexion WFL. Strength: Right Upper Extremity: Shoulder flexors 5/5. Shoulder abductors 5/5. Elbow flexors 5/5. Elbow extensors 5/5. Park Superintendent strong. Left Upper Extremity: Shoulder flexors 5/5. Shoulder abductors 5/5. Elbow flexors 5/5. Elbow extensors 5/5. Park Superintendent strong. Right Lower Extremity: Hip flexors 4/5. Hip abductors 4/5. Knee flexors 4/5. Knee extensors 4/5. Ankle dorsiflexors 5/5. Ankle plantarflexors 5/5. Left Lower Extremity:Hip flexors 5/5. Hip abductors 5/5. Knee flexors 5/5. Knee extensors 5/5. Ankle dorsiflexors 5/5. Ankle plantarflexors 5/5. Sensation: Intact as to pain and pressure on bilateral lower extremities. Bed Mobility/Transfers: Supine to sit supervision Sit to supine minimal assist of 2 due to hypotensive episode Sit to stand standby assist Stand to sit standby assist Bed to chair standby assist Chair to bed minimal assist of 2 due to hypotensive episode THERA EX: Prior to walking activity patient tolerated standing level balance exercises at bedside consisting of bilateral heel raises x10, partial knee bends, and high marching in place while holding onto front wheeled walker requiring only contact-guard assist. Deep breathing exercises was also performed in between each activity with good response. Gait: Patient only tolerated 8 steps using front wheeled walker with WBAT on the right LE requiring contact-guard assist but reported seeing pink dots and indicated that her vision starting to tunnel in. Patient chair advised there was right away called in. Blood pressure measured 71/40 mmHg. patient was then assisted by myself and nurse supervisors to back into bed requiring minimal assist 2. No further mobility assessment was done. Balance: Static Sitting: Normal Dynamic Sitting: Normal Static Standing: Fair Dynamic Standing: Fair Special Tests: Mobility Limitations Standardized Measure [facility] AM-PAC 6 clicks Basic Mobility Inpatient Short Form: Raw Score: 20 CMS Score: 36% deficit Informed Consent/Education: Patient instructed in purpose of PT consult and plan of care. Assessment: Mary demonstrates functional mobility decline requiring the use of a front wheeled walker for all mobility ADL performance, difficulty with a with walking, and balance impairment due to postoperative status. She had a hypotensive episode due to perhaps to vasovagal cause or may be a result of narcotic pain intake. Helen is a 69-year-old female with primary unilateral osteoarthritis of the right hip and is status post right total hip arthroplasty on postoperative day 0. Patient presents with clinical signs and symptoms consistent with current/admitting diagnoses that have resulted to mobility limitations, gait instability, generalized weakness, and impairment of motor control as demonstrated by the following impairment level findings: 1. Decreased strength to right hip major muscle groups 2. Impaired standing balance 3. Impaired activity tolerance Impairments are contributing to the following functional limitations: 1. Inability to safely ambulate without assistive device and physical assistance 2. Increase completion time for mobility ADL performance 3. Increased fall risk 4. Inability to negotiate steps alone safely Patient is assessed as a 87411 moderate complexity based on the following: History: 69 [id number] with impairment level findings, functional limitations, and past medical history as indicated above Examination: Demonstrable impairment in strength, balance, and mobility level with underlying impairments and functional limitations as documented above Presentation: Evolving Decision Makin moderate complexity Goals: Goals X 1 more treatment session 1. Supine-Sit independent 2. Sit-Supine independent 3. Sit-Stand independent 4. Stand-Sit independent 5. Bed-Chair independent 6. Chair-Bed independent 7. Supervision gait on level surface with use of least restrictive device for at least 300 feet without report of pain nor dyspnea 8. Supervision stair negotiation while holding onto bilateral rails for at least 10 steps without report of pain nor dyspnea 9. Independent with home exercise program 10. Good static and dynamic standing balance/tolerance Plan of Care/Treatment Plan: 1 more treatment session tomorrow before discharge. Plan of care has been reviewed with the [facility] OFFICER providing the service under Physical Therapy direction. Initiate Physical Therapy intervention for strengthening, bed mobility, transfers, gait, stairs, balance training, use of assistive device. DISCHARGE RECOMMENDATIONS: Home when medically cleared by orthopedic surgeon. Outpatient PT services to facilitate return to premorbid independent level. TREATMENT CODE/TIME: 46467 x 33 minutes beginning at 16:508 PM. Thank you for the opportunity to participate in the care of this patient. Madisyn Kaur PT, DPT, CLT [facility] [place], [place]
[2020-04-20] MEDS: Lactated Ringers 500 ML IV (17:20)
[2020-04-20] MEDS: Celecoxib 200 MG CAP PO (19:52)
[2020-04-20] MEDS: Aspirin E.C. 81 MG TABEC PO (19:52)
[2020-04-20] MEDS: ceFAZolin 1 GM/50 ML BAG IVPB (21:27)
[2020-04-21 05:09] VITALS: BP 137/62; PULSE 68; RESP 18; TEMP 37.1; O2SAT 97
[2020-04-21] MEDS: ceFAZolin 1 GM/50 ML BAG IVPB (05:20)
--- NOTE | 2020-04-21 07:05 | W.PM.PROGNOT ---
Date of Service Date of service: 04/21/20 Time of Service: 07:05 Assessment and Plan Assessment and plan (1) Primary osteoarthritis of right hip: Status: Chronic Assessment and plan: Mary is a 69-year-old status post right anterior hip arthroplasty. She was unable to discharge home yesterday due to presyncope. However, that has resolved. She has no further symptoms. She has been able to ambulate within the room and has had well-controlled pain. This is likely just related to the remnant spinal as well as the adaptation of the body hemodynamically after the surgery. There are no persistent issues that need further intervention. Therefore, she should go to discharge to home after PT this morning. Subjective Subjective Interval history since last seen: Helen is doing better this morning. She no longer has any other lightheadedness issues. She has been able to mobilize in the room with minimal issues. Her pain is been well controlled. She denies lightheadedness. She denies chest pain or shortness of breath. Exam Narrative Exam Narrative: Resting on her left side in the bed. She is in no acute distress. Alert and oriented x3. Right hip dressings clean dry and intact. No significant swelling or ecchymosis. Objective Objective Clinical Data: Vital Signs Temperature 37.1 C 04/21/20 05:09 Temperature Source Tympanic 04/21/20 05:09 Pulse 68 04/21/20 05:09 Pulse Rhythm Regular 04/21/20 04:22 Respiratory Rate 18 04/21/20 05:09 Respiratory Effort Non-Labored 04/21/20 04:22 Respiratory Depth Normal 04/21/20 04:22 Respiratory Pattern Normal 04/21/20 04:22 Blood Pressure 137/62 04/21/20 05:09 Pulse Oximetry 97 04/21/20 05:09 Respiratory End-tidal CO2 38 04/20/20 15:28 Oxygen Delivery Method Room Air 04/21/20 05:09 Oxygen Flow Rate 0 04/21/20 05:09 Pain Level 0 04/21/20 05:09 Intake & Output 04/20/20 04/20/20 04/21/20 11:59 23:59 11:59 Intake Total 2890.667 / 2890.667 10 10 Output Total 1000 / 1000 1400 / 1400 Balance 1890.667 / 1890.667 -1390 / -1390 Weight 68.7 kg Intake: IV 2210.667 / 2210.667 Oral 680 / 680 Output: Urine 750 / 750 1400 / 1400 Estimated Blood Loss 250 / 250 Other: Urine Color Yellow Yellow Urine Appearance Clear Clear Urine Odor Normal Normal Emesis Description None Voiding Methods Toilet Toilet
[2020-04-21] MEDS: Pantoprazole 40 MG TABCR PO (07:25)
[2020-04-21] MEDS: Aspirin E.C. 81 MG TABEC PO (07:25)
[2020-04-21] MEDS: Docusate Sodium 100 MG CAP PO (07:25)
[2020-04-21] MEDS: Acetaminophen 500 MG TAB 1000 MG PO (07:26)
[2020-04-21] MEDS: Normal Saline Flush 10 ML SYR IV (07:26)
[2020-04-21] MEDS: Celecoxib 200 MG CAP PO (07:26)
[2020-04-21 07:30] VITALS: BP 130/70; PULSE 65; RESP 19; TEMP 36.5; O2SAT 95
[2020-04-21] MEDS: hydroCHLOROthiazide 12.5 MG TAB PO (07:37)
[2020-04-21] MEDS: Losartan 50 MG TAB 100 MG PO (07:37)
[2020-04-21] MEDS: Multivitamin w/Minerals TAB 1 TAB PO (07:37)
[2020-04-21] MEDS: PARoxetine 20 MG TAB PO (07:38)
--- NOTE | 2020-04-21 12:20 | CMDISCH_ITS ---
- If Service Date Differs Date of service: 04/21/20 Time of Service: 12:20 LACE Index Scoring Tool - Questions: Length of Stay (in days): 1 Acuity (Admit via E.D.?): No E.D. Visits: 0 - Answers: Total Score: 1 Risk of Readmission: Low Risk Care Management Discharge Reason for Hospitalization: Total hip arthroplasty Discharge Plan: Helen will be discharged home with no new services. She was provided with a FWW by CM at the recommendation of PT. She will follow up with her PCP and surgeon and transport via [employer] vehicle. Patient/Family Education Needs: Discharge plan, limitations, follow up plan, Ask Me Three
--- NOTE | 2020-04-21 14:30 | PT.INTREAT ---
PT Notes Visit Reasons: Right hip DJD Inpatient Physical Therapy Treatment Note [facility] Date: 04/21/2020 SUBJECTIVE: Helen del toroports that she feels good and is ready to go home. OBJECTIVE: [] BED MOBILITY/TRANSFERS Supine-sit: S Sit-supine: S Sit-stand: S Stand-sit: S GAIT Assistive Device: FWW Weight bearing: WBAT R Assist: S Distance: 150' THEREX:reviewed her HEP from KAREN packet. STAIRS: ascend/ descend 3, 4 steps and 2, 6 steps with 2 handrails and SBA. ASSESSMENT: she is steady on her feet. Safe independent transfers and stair negotiation. PLAN: d/c home with . TREATMENT CODE/TIME:25 min. [id number].
--- NOTE | 2020-04-22 08:51 | INDS_ITS ---
Date of service: 04/22/20 Time of Service: 08:51 PT Notes Visit Reasons: Right hip DJD Physical Therapy Inpatient Discharge Summary Date: 04/22/2020 Referring Doctor: Carlyle Tolentino MD PT Orders: PT CONSULT: Status post Ortho surgery Precautions: Fall. Standard. WBAT on right LE. Patient Profile/Admitting Diagnosis: Helen is a 69-year-old female with primary unilateral osteoarthritis of the right hip and is status post right total hip arthroplasty on postoperative day 1. PMHX: Medical History (Updated 04/08/20 @ 09:43 by Elizabeth Hoffmann) Actinic keratosis (Chronic 03/11/17) Anxiety (Chronic 10/27/13) on medication Bilateral carpal tunnel syndrome (Inactive 11/03/14) Bronchitis (Inactive) Cervical spondylosis (Chronic) Cyst of ovary (Inactive 10/27/13) Diverticulosis of colon without diverticulitis (Chronic) pandiverticulosis 07/25/11 (SIGMOID DIVERTICULOSIS) Dysphagia (Inactive 12/12/12) Essential hypertension (Chronic 06/17/13) Gastroesophageal reflux disease with esophagitis (Resolved 06/18/13) Globus sensation (Resolved 06/18/13) [place] [facility] [place]ache (Inactive 12/09/12) Heart murmur (Inactive) Hiatal hernia (Chronic 01/07/14) [place] [place]; 1CM HIATUS HERNIA Hypertension Knee pain (Chronic 08/22/04) right; neg x-ray Numbness of face (Resolved 12/09/12) Palpitations (Inactive 12/09/12) Polyp of colon (Chronic) 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 Mass was actually on the appendix and this was [place] [facility] [place] History of bilateral ligation of fallopian tubes (Inactive) History of eye surgery (Inactive) B/L Hx of heart surgery (Chronic) Status post arthroscopy of left knee (Acute) lateral release Social History/Home Situation: Helen lives with are in a private home with 9 steps to enter and 2 rails that are a little far apart. Another set of 10 steps lead to the bedroom on the second floor. She is independent with all aspects of ADL prior to surgery not needing any assistive ambulatory device nor adaptive equipment. Equipment Owned/DME: None Subjective: NT. See most recent STEAMING CABINET TENDER notes. Objective: General Observation: NT. See most recent STEAMING CABINET TENDER notes. Mental Status: NT. See most recent STEAMING CABINET TENDER notes. Pain: NT. See most recent STEAMING CABINET TENDER notes. ROM: Right Upper Extremity: Shoulder Flexion WFL. Shoulder abduction WFL. Elbow flexion WFL. Wrist flexion WFL. Opening and closing of hand WFL. Left Upper Extremity: Shoulder Flexion WFL. Shoulder abduction WFL. Elbow fle xion WFL. Wrist flexion WFL. Opening and closing of hand WFL. Right Lower Extremity: Hip flexion WFL. Hip abduction WFL. Knee flexion WFL. Ankle dorsiflexion WFL. Ankle plantarflexion WFL. Left Lower Extremity: Hip flexion WFL. Hip abduction WFL. Knee flexion WFL. Ankle dorsiflexion WFL. Ankle plantarflexion WFL. Strength: Right Upper Extremity: Shoulder flexors 5/5. Shoulder abductors 5/5. Elbow flexors 5/5. Elbow extensors 5/5. Field Marketing Lead strong. Left Upper Extremity: Shoulder flexors 5/5. Shoulder abductors 5/5. Elbow flexors 5/5. Elbow extensors 5/5. Field Marketing Lead strong. Right Lower Extremity: Hip flexors 4/5. Hip abductors 4/5. Knee flexors 4/5. Knee extensors 4/5. Ankle dorsiflexors 5/5. Ankle plantarflexors 5/5. Left Lower Extremity:Hip flexors 5/5. Hip abductors 5/5. Knee flexors 5/5. Knee extensors 5/5. Ankle dorsiflexors 5/5. Ankle plantarflexors 5/5. Sensation: Intact as to pain and pressure on bilateral lower extremities. Bed Mobility/Transfers: Supine to sit supervision Sit to supine supervision Sit to stand supervision Stand to sit supervision Bed to chair supervision Chair to bed supervision Gait: 150 feet with WBAT on R with supervision. Up and down three 4-inch steps and two 6-inch steps while holding onto B rails with SBA. Balance: Static Sitting: Normal Dynamic Sitting: Normal Static Standing: Fair Dynamic Standing: Fair Assessment: Mary demonstrates functional mobility decline requiring the use of a front wheeled walker for all mobility ADL performance, difficulty with a with walking, and balance impairment due to postoperative status. She had a hypotensive episode due to perhaps to vasovagal cause or may be a result of narcotic pain intake. Helen is a 69-year-old female with primary unilateral osteoarthritis of the right hip and is status post right total hip arthroplasty on postoperative day 1. Goals: Goals X 1 more treatment session 1. Supine-Sit independent NOT MET 2. Sit-Supine independent NOT MET 3. Sit-Stand independent NOT MET 4. Stand-Sit independent NOT MET 5. Bed-Chair independent NOT MET 6. Chair-Bed independent NOT MET 7. Supervision gait on level surface with use of least restrictive device for at least 300 feet without report of pain nor dyspnea 8. Supervision stair negotiation while holding onto bilateral rails for at least 10 steps without report of pain nor dyspnea 9. Independent with home exercise program 10. Good static and dynamic standing balance/tolerance DISCHARGE RECOMMENDATIONS: Home when medically cleared by orthopedic surgeon. Outpatient PT services to facilitate return to premorbid independent level. TREATMENT CODE/TIME: NC. Thank you for the opportunity to participate in the care of this patient. Madisyn Kaur PT, DPT, CLT [facility] [place], [place]
== END 2020-04-21 10:57 | disposition home or self-care (01) ==
LOC: PDS 15:22 → MS 15:23
PROVIDERS: Admitting Provider Student in an Organized Health Care Education/Training Program; PCP Family Medicine; Visit Provider Student in an Organized Health Care Education/Training Program
PROC: 0SR904A Replacement of Right Hip Joint with Ceramic on Polyethylene Synthetic Substitute, Uncemented, Open Approach (ICD-10-PCS; CPT 27130; principal; 2020-04-20 13:00)
DX: M16.11 Unilateral primary osteoarthritis, right hip (principal); M25.551 Pain in right hip; Z96.641 Presence of right artificial hip joint; K21.9 Gastro-esophageal reflux disease without esophagitis; I10 Essential (primary) hypertension
CPT/HCPCS: 27130; 94640; 97162; 97530; NC; 73501; G0378; J0690; J1100; J1885; J2250; J2405

== ENCOUNTER 2020-05-05 10:16 | Outpatient (CLI) | payer BC, SELFPAY ==
--- NOTE | 2020-05-05 09:15 | DI.RAD_ITS ---
EXAM: XR HIP RT COMPLETE AP PELVIS INDICATION: 1st post op. COMPARISON: CR XR HIP RT COMPLETE AP PELVIS from 07/03/2019 CR XR PELVIS AP from 04/08/2020 TECHNIQUE: 2D digital imaging was performed. FINDINGS: The patient is status post right total hip arthroplasty. The orthopedic hardware appears in good pos ition. No lucencies are seen about the hardware. Degenerative changes are seen in the left hip with joint space narrowing and subchondral sclerosis. Bones are intact. The soft tissues are unremarkab le. IMPRESSION: Right KAREN DATA REPOSITORY: RADIATION DOSE DELIVERED:
== END 2020-05-05 10:36 ==
PROVIDERS: PCP Family Medicine; Referring Provider Family Medicine; Visit Provider Physician Assistant
DX: Z96.641 Presence of right artificial hip joint (principal)
CPT/HCPCS: 73502

== ENCOUNTER 2020-08-16 02:31 | Outpatient (CLI) | payer BC, SELFPAY ==
[2020-08-18 18:05] LABS: Patient Race White; SARS-CoV-2 RNA Undetected (Undetected); SARS-CoV-2 Specimen Source Nasal
== END 2020-08-16 02:51 ==
PROVIDERS: PCP Family Medicine; Visit Provider Family Medicine
DX: Z20.828 Contact with and (suspected) exposure to other viral communicable diseases (principal)
CPT/HCPCS: U0003

== ENCOUNTER 2020-08-22 11:51 | Outpatient (CLI) | payer BC, SELFPAY ==
--- NOTE | 2020-08-22 09:23 | DI.RAD_ITS ---
EXAM: XR KNEE LT 4V AP,LAT,ELYSIA,PAT CLINICAL HISTORY: L knee pain TECHNIQUE: COMPARISON: CR LEFT KNEE 4+ VIEWS from 05/22/2010 FINDINGS: Four views were obtained. There is slight narrowing of the medial tibiofemoral cartilaginous joint s pace. Bones and soft tissues of the knee otherwise appear intact. IMPRESSION: Slight presumed degenerative cartilaginous joint space narrowing medial tibiofemoral joint. Otherwis e unremarkable RADIATION DOSE DELIVERED: Total DLP Total DLP
== END 2020-08-22 12:11 ==
PROVIDERS: PCP Family Medicine; Referring Provider Family Medicine; Visit Provider Physician Assistant
DX: M25.562 Pain in left knee (principal)
CPT/HCPCS: 73564

== ENCOUNTER 2020-09-06 03:33 | Outpatient (CLI) | payer BC, SELFPAY ==
[2020-09-06 12:33] LABS: HGB 12.8 g/dL (11.2-15.7); MCH 31.2 pg (27.0-33.0); MCHC 33.7 % (32.0-36.0); MCV 92.7 fL (80-95); MPV 10.7 fL (8.0-11.0); Platelet Count 203 10^3/uL (130-400); RDW 12.6 % (11.7-14.6); WBC 5.85 10^3/uL (4.4-10.8)
[2020-09-06 12:59] LABS: ALT 46 U/L (14-59); AST 24 U/L (15-37); Albumin 4.1 g/dL (3.4-5.0); Alkaline Phosphatase 82 U/L (46-116); BUN 18 mg/dL (7-18); Bilirubin, Total 0.6 mg/dL (0.2-1.0); CREATININE 0.83 mg/dL (0.55-1.02); Calcium 8.8 mg/dL (8.5-10.1); Calculated LDL 129 mg/dL (<100); Chloride 103 mmol/L (98-107); Cholesterol 227 mg/dL (<200); Glucose 86 mg/dL (74-106); HDL Cholesterol 71 mg/dL (40-60); Potassium 4.2 mmol/L (3.5-5.1); Sodium 140 mmol/L (136-145); Total Protein 7.1 g/dL (6.4-8.2); Triglyceride 137 mg/dL (<150)
== END 2020-09-06 03:53 ==
PROVIDERS: PCP Family Medicine; Visit Provider Family Medicine
DX: Z00.00 Encounter for general adult medical examination without abnormal findings (principal); I10 Essential (primary) hypertension; M25.551 Pain in right hip
CPT/HCPCS: 36415; 80053; 80061; 85027

== ENCOUNTER 2020-10-04 01:21 | Outpatient (CLI) | payer BC, SELFPAY ==
--- NOTE | 2020-10-04 08:00 | DI.MAMMO_ITS ---
EXAM: MAMMO SCREENING CLINICAL HISTORY: screening.Z12.39 TECHNIQUE: Mammograms were interpreted according to the usual protocol including computer analysis w Phytel CAD system, tomosynthesis and C-view imaging. COMPARISON: 2010 through 2017 FINDINGS: The breasts are composed of scattered fibroglandular densities, Breast Density category B. No suspicious masses or suspicious microcalcifications are seen. No skin thickening or abnormal axillary lymph nodes are seen. There has been no significant change from prior exams. IMPRESSION: BI-RADS Category 1, Negative mammogram Yearly screening mammography is recommended. Breast Density - Category B, scattered fibroglandular densities. A negative radiographic report should not delay biopsy if a dominant or clinically suspicious mass is present. Up to ten percent of cancers are not identified on mammography. A negative report may reinforce clinical impression. Adenosis and dense breasts may obscure an underlying neoplasm. False positive reports average 6 to 10%. Patient will receive a letter notifying them of these results.
== END 2020-10-04 01:41 ==
PROVIDERS: PCP Family Medicine; Visit Provider Family Medicine
DX: Z12.31 Encounter for screening mammogram for malignant neoplasm of breast (principal)
CPT/HCPCS: 77063; 77067

== ENCOUNTER 2021-04-20 10:11 | Outpatient (CLI) | payer BC, SELFPAY ==
--- NOTE | 2021-04-20 08:45 | DI.RAD_ITS ---
Exam(s) XR HIP RT AP LAT ONLY EXAM: XR HIP RT AP LAT ONLY CLINICAL HISTORY: R KAREN. TECHNIQUE: 2D digital imaging was performed. COMPARISON: CR XR HIP RT COMPLETE AP PELVIS from 05/05/2020 FINDINGS: There is stable position alignment of the components of the right hip prosthesis. No fractures nor l oosening evident. IMPRESSION: DATA REPOSITORY: RADIATION DOSE DELIVERED:
--- NOTE | 2021-04-20 09:00 | DI.RAD_ITS ---
Exam(s) XR KNEE LT 3V AP,LAT,ELYSIA EXAM: XR KNEE LT 3V AP,LAT,ELYSIA CLINICAL HISTORY: L knee pain. TECHNIQUE: 2D digital imaging was performed. COMPARISON: CR XR KNEE LT 4V AP,LAT,ELYSIA,PAT from 08/22/2020 FINDINGS: There is no evidence fracture nor obvious joint effusion. No obvious degenerative changes. Lucent b one lesion in the metaphysis distal femur exhibits minimal if any significant change when compared to 08/22/2020. Possibly an enchondroma. If clinically indicated follow-up MRI can be performed. IMPRESSION: DATA REPOSITORY: RADIATION DOSE DELIVERED:
== END 2021-04-20 10:12 | disposition home or self-care (01) ==
LOC: DIORS 10:11
PROVIDERS: PCP Family Medicine; Referring Provider Family Medicine; Visit Provider Physician Assistant
DX: M25.562 Pain in left knee; Z96.641 Presence of right artificial hip joint
CPT/HCPCS: 73562; 73502

== ENCOUNTER 2021-11-21 00:46 | Outpatient (CLI) | payer BC, SELFPAY ==
--- NOTE | 2021-11-21 06:30 | DI.MRI_ITS ---
Exam(s) MR LOWER JOINT LT WO EXAM: MR LOWER JOINT LT WO CLINICAL HISTORY: CONTINUED L KNEE PAIN,m76.32,iliotibial band syndrome. TECHNIQUE: Multiplanar multisequence MRI was performed. COMPARISON: CR LEFT KNEE 4+ VIEWS from 05/22/2010 CR XR KNEE LT 3V AP,LAT,ELYSIA from 04/20/2021 FINDINGS: BONES: There is no fracture or contusion pattern. Postsurgical changes are seen in the distal femur a nd patella. JOINTS: There is mild thinning of the articular cartilage over the inferior patella. There is a smal l amount of fluid in the joint space. TENDONS: Extensor mechanism: Unremarkable. Medial retinaculum: Unremarkable. Lateral retinaculum: Unremarkable. Popliteus: Unremarkable. MUSCLES: Unremarkable. MENISCI: There is linear intermediate signal seen in the posterior horn of the medial meniscus. Ther e is a question of contact with the inferior articular surface. This may represent a tear versus deg eneration. The lateral meniscus is unremarkable. SOFT TISSUES: There is mild edema in the prepatellar soft tissues. LIGAMENTS: Anterior Cruciate: Unremarkable. Posterior Cruciate: Unremarkable. Medial Collateral:Unremarkable. Lateral Collateral: Unremarkable. The visualized components of the lateral collateral ligament comple x appear intact. The iliotibial band is unremarkable. OTHER: There is some fluid seen in the lateral synovial recess adjacent to the ITB. It appears gross ly unremarkable. IMPRESSION: 1. Unremarkable appearance of the iliotibial band. 2. Postsurgical changes in the distal femur and patella. 3. Linear intermediate signal seen in the posterior horn of the medial meniscus. There is possible c ontact the inferior surface. This may represent degeneration versus a tear. Please correlate clinic ally. 4. Edema in the prepatellar soft tissues which may represent bursitis. DATA REPOSITORY:
== END 2021-11-21 01:06 ==
PROVIDERS: PCP Family Medicine; Visit Provider Student in an Organized Health Care Education/Training Program
DX: M76.32 Iliotibial band syndrome, left leg (principal); M25.562 Pain in left knee; M25.462 Effusion, left knee; R60.0 Localized edema; M23.322 Other meniscus derangements, posterior horn of medial meniscus, left knee
CPT/HCPCS: 73721

== ENCOUNTER 2021-12-01 09:29 | Outpatient (CLI) | payer BC, SELFPAY ==
--- NOTE | 2021-12-01 09:15 | DI.RAD_ITS ---
Exam(s) XR HIP LT COMPLETE AP PELVIS EXAM: XR HIP LT COMPLETE AP PELVIS CLINICAL HISTORY: pain in hip. TECHNIQUE: 2D digital imaging was performed. COMPARISON: CR XR HIP RT COMPLETE AP PELVIS from 05/05/2020 CR XR HIP RT AP LAT ONLY from 04/20/2021 FINDINGS: Two views of the pelvis and left hip compared to 04/20/2021 and 05/05/2020 Right hip prosthesis appears stable. Moderate-advanced degenerative changes in the left hip are agai n noted and this appears to have further progressed with further joint space narrowing and degenerati ve subarticular cysts evident. Also marginal osteophytes at the left femoral head level IMPRESSION: Progression of left hip degenerative osteoarthritic disease when compared to 05/05/2020. Stable appearance of right hip prosthesis. DATA REPOSITORY: RADIATION DOSE DELIVERED:
== END 2021-12-01 09:30 | disposition home or self-care (01) ==
LOC: DIORS 09:29
PROVIDERS: PCP Family Medicine; Visit Provider Physician Assistant Surgical
DX: M16.12 Unilateral primary osteoarthritis, left hip (principal); Z96.641 Presence of right artificial hip joint
CPT/HCPCS: 73502

== ENCOUNTER 2022-01-22 01:58 | Outpatient (CLI) | payer BC, SELFPAY | END 2022-01-22 01:59 | disposition home or self-care (01) | LOC: LBO 01:58 | PROVIDERS: PCP Family Medicine; Visit Provider Student in an Organized Health Care Education/Training Program ==

== ENCOUNTER 2022-01-22 02:07 | Outpatient (CLI) | payer BC, SELFPAY ==
[2022-01-22 08:55] LABS: HCT 37.8 % (36.0-46.0); HGB 12.6 g/dL (11.2-15.7); MCH 31.7 pg (27.0-33.0); MCHC 33.3 % (32.0-36.0); MCV 95 fL (80-95); MPV 9.5 fL (8.0-11.0); Platelet Count 142 10^3/uL (130-400); RBC 3.97 10^6/uL (3.93-5.22); RDW 11.9 % (11.7-14.6); RDW-SD 41.6 fL; WBC 5.27 10^3/uL (4.4-10.8)
[2022-01-22 09:38] LABS: Anion Gap 7.5 mmol/L (3-11); BUN 22 mg/dL (7-18); CO2 29.5 mmol/L (21.0-32.0); Calcium 8.9 mg/dL (8.5-10.1); Chloride 104 mmol/L (98-107); Estimated GFR 54.66 (mL/min/1.73m2); Glucose 100 mg/dL (74-106); Potassium 3.9 mmol/L (3.5-5.1); Sodium 141 mmol/L (136-145)
[2022-01-23 11:30] LABS: COVID-19 RT-PCR UVMMC Result Negative (Negative)
== END 2022-01-22 02:08 | disposition home or self-care (01) ==
LOC: LBO 02:08
PROVIDERS: PCP Family Medicine; Visit Provider Student in an Organized Health Care Education/Training Program
DX: M25.552 Pain in left hip (principal); M16.12 Unilateral primary osteoarthritis, left hip; Z20.822 Contact with and (suspected) exposure to COVID-19; Z01.818 Encounter for other preprocedural examination; Z01.812 Encounter for preprocedural laboratory examination
CPT/HCPCS: 36415; 80048; 85027; 87635; U0003

== ENCOUNTER 2022-01-24 07:15 | Day surgery (SDC) | payer BC, SELFPAY ==
[2022-01-24] VITALS (10 sets, daily range): BP systolic 95–133; BP diastolic 35–81; PULSE 51–71; RESP 12–18; TEMP 36.1–36.3; O2SAT 96–100; BMI 28.6
[2022-01-24] MEDS: Celecoxib 200 MG CAP 400 MG PO (07:48)
[2022-01-24] MEDS: Acetaminophen 500 MG TAB 1000 MG PO (07:48)
--- NOTE | 2022-01-24 08:04 | ANES.PREOP_ITS ---
General Info Date of Service Date Performed: 01/24/22 Height: 5 ft 3 in Weight: 73.4 kg Body Mass Index (BMI): 28.6 Surgical Procedure: Operation Date: 01/24/22 09:50 Proposed Procedure Side Surgeon p Hip Total Hip Anterior Left Carlyle Tolentino MD Meds Allergies and Home Medications Allergies Allergy/AdvReac Type Severity Reaction Status Date / Time lisinopril Allergy Intermediate I cant Verified 01/24/22 07:32 remember it was quite awhile ago amlodipine AdvReac Unknown edema Verified 01/24/22 07:32 diltiazem AdvReac Nausea and Verified 01/24/22 07:32 headaches Home Medication Medication Instructions Recorded multivitamin with minerals (Daily 1 tab PO DAILY 07/14/19 Multivitamin-Minerals) clotrimazole-betamethasone 1 1 applic TOPICAL BID PRN #45 gm 08/27/19 %-0.05 % topical cream (Lotrisone) acetaminophen 500 mg tablet 1,000 mg PO Q8H PRN #90 tab 04/20/20 tiotropium bromide 18 mcg capsule 1 cap INHALATION DAILY #90 inh 03/24/21 with inhalation device (Spiriva with HandiHaler) hydrochlorothiazide 12.5 mg tablet 12.5 mg PO DAILY #90 tab-cap 11/02/21 losartan 100 mg tablet 100 mg PO DAILY #90 tab-cap 11/02/21 paroxetine HCl 20 mg tablet 20 mg PO DAILY #90 tab-cap 11/02/21 metoprolol succinate 25 mg 25 mg PO DAILY #90 tab 12/11/21 tablet,extended release 24 hr ibuprofen 200 mg tablet 400 mg PO Q6H PRN 01/24/22 Current Visit Medications: Current Medications Generic Name Dose Route Start Last Admin Trade Name Freq PRN Reason Stop Dose Admin Acetaminophen 1,000 mg 01/24/22 06:00 01/24/22 07:48 Acetaminophen 500 Mg Tab PO 1,000 mg PREOP CARMELINA Administration Acetaminophen 1,000 mg 01/24/22 14:00 Acetaminophen 500 Mg Tab PO TID CARMELINA Aspirin 81 mg 01/24/22 20:00 Aspirin E.C. 81 Mg Tabec PO BID CARMELINA Celecoxib 400 mg 01/24/22 06:00 01/24/22 07:48 Celecoxib 200 Mg Cap PO 400 mg PREOP CARMELINA Administration Celecoxib 200 mg 01/24/22 20:00 Celecoxib 200 Mg Cap PO BID CARMELINA Docusate Sodium 100 mg 01/24/22 07:23 Docusate Sodium 100 Mg Cap PO BID PRN PRN Constipation Gabapentin 300 mg 01/24/22 22:00 Gabapentin 300 Mg Cap PO HS CARMELINA Hydromorphone HCl 0.5 mg 01/24/22 07:23 Hydromorphone 2 Mg/Ml Vial IVP Q2H PRN PRN Tranexamic Acid 1,000 mg/ 60 mls @ 360 mls/hr 01/24/22 06:00 Sodium Chloride IV PREOP CARMELINA Ringer's Solution 1,000 mls @ 80 mls/hr 01/24/22 06:00 IV 02/22/22 23:59 INFUSION CARMELINA Cefazolin Sodium/Dextrose 2 gm in 50 mls @ 100 mls/hr 01/24/22 06:00 Ancef Duplex IVPB 02/22/22 23:59 PREOP CARMELINA Cefazolin Sodium/Dextrose 1 gm in 50 mls @ 100 mls/hr 01/24/22 14:00 Ancef Duplex IVPB Q8H [facility] IV Miscellaneous Supplies 1 each 01/24/22 06:00 Iv Access IV 02/22/22 23:59 DIRECTED CARMELINA Oxycodone HCl 0 mg 01/24/22 07:23 Oxycodone 5 Mg Tab PO Q3H PRN PRN Pain Pantoprazole Sodium 40 mg 01/25/22 07:30 Pantoprazole 40 Mg Tabcr PO DAILY@0730 [facility] Polyethylene Glycol 17 gm 01/24/22 07:23 Polyethylene Glycol 3350 17 Gm Packet PO BID PRN PRN Constipation Sodium Chloride 0 ml 01/24/22 06:00 Normal Saline Flush 10 Ml Syr IV 02/22/22 23:59 PRN PRN Sodium Chloride 0 ml 01/24/22 06:00 Normal Saline 10 Ml Vial IJ 02/22/22 23:59 DIRECTED PRN Sterile Water 0 ml 01/24/22 06:00 Water,Injection,Sterile 10 Ml Vial IJ 02/22/22 23:59 DIRECTED PRN PFSH Active Problems Active Problems: Problem Status Onset Code Actinic keratosis 03/11/17 L57.0 Anxiety 10/27/13 F41.9 Cervical spondylosis M47.812 Diverticulosis of colon without diverticulitis K57.30 Essential hypertension 06/17/13 I10 Gastroesophageal reflux disease with esophagitis 06/18/13 K21.0 Globus sensation 06/18/13 F45.8 Hiatal hernia 01/07/14 K44.9 Knee pain 08/22/04 M25.569 Polyp of colon K63.5 Hx of chronic arthritis Z87.39 Trochanteric bursitis M70.60 Diverticulosis K57.90 Perioral dermatitis L71.0 Annual physical exam Z00.00 Actinic keratoses L57.0 Iliotibial band syndrome affecting left lower leg M76.32 Arthralgia M25.50 LLQ abdominal pain R10.32 Skin lesion L98.9 Osteoarthritis of left hip M16.12 Medical History Medical History Bilateral carpal tunnel syndrome (11/03/14) Bronchitis Cyst of ovary (10/27/13) Dysphagia (12/12/12) Headache (12/09/12) Heart murmur Pt. states she no longer has murmur Hypertension Numbness of face (12/09/12) Palpitations (12/09/12) Skin lesion Smoker Tachycardia (12/21/15) Pt. states she no longer has this Surgical History Surgical History History of appendectomy Surgery was to remove suspected R ovarian cyst. [place] was actually [place] the [place] [facility] [place] of bilateral ligation of fallopian tubes History of eye surgery B/L cross eye correction Hx of heart surgery possible ablation +/- defect repair-2017 pt. 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/20) Tobacco Smoking/Tobacco Use Status: Former Tobacco Use Passive smoking exposure: Yes Alcohol Alcohol Intake: current Alcohol intake frequency: 3 or more drinks per day Alcohol type: wine Substance Use Substance use: Never Substance use type: does not use Vital Signs and Lab Results Vital Signs Most Recent Vital Signs in EMR: Most Recent Vital Signs Temp Pulse Resp BP Pulse Ox 36.3 C L 71 16 133/60 98 01/24/22 07:28 01/24/22 07:28 01/24/22 07:28 01/24/22 07:28 01/24/22 07:28 Vital Signs Comment Vital Signs Comment:: Temp Pulse Resp BP Pulse Ox 36.3 C L 71 16 133/60 98 01/24/22 07:28 01/24/22 07:28 01/24/22 07:28 01/24/22 07:28 01/24/22 07:28 Lab Results Blood Type / Crossmatch: No Data to Display Complete Blood Count: White Blood Count 5.27 10^3/uL (4.4-10.8) 01/22/22 08:50 01/22/22 Red Blood Count 3.97 10^6/uL (3.93-5.22) 01/22/22 08:50 01/22/22 Hemoglobin 12.6 g/dL (11.2-15.7) 01/22/22 08:50 01/22/22 Hematocrit 37.8 % (36.0-46.0) 01/22/22 08:50 01/22/22 Platelet Count 142 10^3/uL (130-400) 01/22/22 08:50 01/22/22 Complete Metabolic Panel: Sodium Level 141 mmol/L (136-145) 01/22/22 08:50 01/22/22 Potassium Level 3.9 mmol/L (3.5-5.1) 01/22/22 08:50 01/22/22 Chloride Level 104 mmol/L (98-107) 01/22/22 08:50 01/22/22 Carbon Dioxide Level 29.5 mmol/L (21.0-32.0) 01/22/22 08:50 01/22/22 Blood Urea Nitrogen 22 mg/dL (7-18) H 01/22/22 08:50 01/22/22 Creatinine 1.0 mg/dL (0.55-1.02) 01/22/22 08:50 01/22/22 Estimated GFR/1.73 m2 54.66 (mL/min/1.73m2) 01/22/22 08:50 01/22/22 Calcium Level 8.9 mg/dL (8.5-10.1) 01/22/22 08:50 01/22/22 Glucose Level 100 mg/dL (74-106) 01/22/22 08:50 01/22/22 Liver Function Panel: No Data to Display Coagulation Panel: No Data to Display Cardiac Panel: No Data to Display Arterial Blood Gas: No Data to Display Venous Blood Gas: No Data to Display Pancreas Panel: No Data to Display Thyroid Panel: No Data to Display Infectious Disease: Coronavirus (COVID-19)(PCR) Negative (Negative) 01/22/22 08:40 01/22/22 Blood Cultures: No Data to Display Toxicology Panel: No Data to Display Imaging and Studies Imaging and Studies Study information below may be from another EMR and interpreted by another provider. Please see original notes in EMR for more complete details. Stress Test Summary: Date of Exam: 12/15/12Sex: FDOB: 1950ge: 62 Exam( s):[id number] NM:MPI Resting & Stress GRP Department of Nuclear Medicine SPECT Nuclear Cardiology Report CLINICAL DIAGNOSIS: chest pain, PSVT Exercise: Lexiscan: x Dose: 0.4mgm REST: 9.8 mCi [id number] IV was administered at 8:30 AM on 12/15/12 in accordance with established rest protocol procedures. Images of the heart were obtained with SPECT reconstruction. STRESS: 30.4 mCi [id number] IV was administered at 9:45 AM on 12/15/12 in accordance with established stress protocol procedures. Images of the heart were obtained with SPECT reconstruction. INTERPRETATION: View Normal Transient Mixed Fixed Perfusion Defect Defect Defect Short [place] x Vertical Long [place] x Horizontal Long [place] x EJECTION FRACTION: 65% GATED WALL MOTION: Normal CONCLUSION: Normal perfusion. Negative ischemia. Normal LV function. Echocardiogram Summary: DATE:December 16, 2012 ___ IN PATIENT __X_ OUT-PATIENT ORDERING PHYSICIAN: Dr. Leonardo HEIGHT: 5 FT 3 IN WEIGHT: 130 LBS BSA: 1.6 STUDY INDICATIONS: Chest pain, supraventricular tachycardia, SUMMARY: Normal biventricular size and systolic function. 1-2+ MR/TR. Pulmonary artery pressure within normal limits. Atrial size is within normal limits. Of note, LVEF was 70% on February 01, 2010 study. Right ventricle was normal. FINDINGS: LEFT VENTRICLE: Normal size. ESTIMATED LVEF: LVEF approximately 70%. RIGHT VENTRICLE: Normal size and function. ATRIA: Left and right atrium within normal limits. AORTIC VALVE: No aortic stenosis or insufficiency. MITRAL VALVE: Mild to moderate mitral insufficiency, no stenosis. TRICUSPID VALVE: Mild to moderate tricuspid insufficiency. PULMONIC VALVE: No pulmonic stenosis or insufficiency. GREAT VESSELS: The inferior vena cava is normal in size and collapses with inspiration. Right atrial pressure estimated at less than 10 mm. of mercury. RSV/PA PRESSURE: Estimated at 25-30 mm. of mercury plus right atrial pressure. PERICARDIUM: No effusion. RHYTHM: Sinus. Pulmonary Function Summary: DATE OF SERVICE: 01/26/13 [facility] Pulmonary Function Test Patient: Mitra Carlisle Date: 01/26/2013 Provider: Paty Leonardo Tech: VALERIE MR#: [id number] V#: [id number] : 1950 Height: 63.50 in Weight: 128.00 lbs Age: 62 Sex: Female Diagnosis: Mild MIRANDA, constant chest pressure ? asthma Quit smoking 12 yrs ago (1/2 ppd x 20 yrs) Pulmonary Medications: Xopenex (not used before the PFT) Post Test Comments: EFFORT: Good patient effort and cooperation. Post bronchodilator study was not done due to normal spirormetry Pre Broncodilator Post Bronchodilator Wiliam Prd LLN %Prd Wiliam %Prd %Chg SPIROMETRY FVC (L) 3.48 3.19 2.66 109 FEV1 (L) 2.65 2.45 2.05 108 FEV1/FVC (%) 76 78 65 98 FEF 25-75% (L/sec) 2.15 2.23 1.86 96 Peak Flow (L/sec) 7.05 6.10 5.09 116 FIVC (L) 3.25 FIF Max (L/sec) 3.55 DATE: JANUARY 26, 2013 PROVIDER: Dr. Paty Leonardo INTERPRETATION SPIROMETRY: Spirometry shows no evidence of obstructive airways disease. No bronchodilator testing was carried out. IMPRESSION: Normal spirometry. Anesthesia Assessment and Plan Anesthesia History Personal History: No History of Anesthesia Complications Family History: No Family History of Anesthesia Complications Exercise Tolerance Exercise Tolerance: Metabolic Equivalents>4 Pertinent Negatives Pertinent Negatives: No Symptoms of GERD Cardiac & Pulmonary Exam Cardiac Exam: Normal S1/S2 Heart Sounds Pulmonary Exam: Clear Bilateral Breath Sounds Implantable Cardiac Device Does patient have a Pacemaker or an ICD?: No Airway Exam Known Difficult Airway: No Mallampati Class: 3 Mouth Opening: Normal (> 3cm) Thyromental Distance: Greater than 3 cm Neck Range of Motion: Full ROM Neck Circumference: Normal Teeth Condition: Normal Dentition ASA Classification ASA Score: ASA 3 Emergency Case?: No NPO Status NPO Status: NPO Clears >2 hours, Solids >8 hours Anesthesia Plan Resuscitation Status: Full Code Anesthesia Technique: Spinal Anesthesia Airway Planned: Natural Airway Monitors Used: Standard Monitors
[2022-01-24] MEDS: Lactated Ringers 1,000 ML 80 ML IV (08:30)
[2022-01-24] MEDS: ceFAZolin 2 GM/50 ML BAG IVPB (09:36)
--- NOTE | 2022-01-24 09:36 | DSE_ITS ---
Discharge Plan Disposition Patient Disposition: HOME Condition: Good Discharge Details Reason For Visit: Left hip DJD Attending Provider: Carlyle Tolentino Primary Care Provider: Paty Leonardo Home Meds and New Rx's Prescriptions: New acetaminophen 500 mg tablet 1,000 mg PO Q8H PRN Qty: 90 0RF Rx Instructions: Take two tablets up to every 8 hours as needed for pain aspirin 81 mg tablet,delayed release (DR/EC) 81 mg PO BID 30 Days Qty: 60 0RF celecoxib [Celebrex] 200 mg capsule 200 mg PO BID Qty: 30 0RF docusate sodium [Colace] 100 mg capsule 100 mg PO BID Qty: 14 0RF pantoprazole 40 mg tablet,delayed release (DR/EC) 40 mg PO DAILY 14 Days Qty: 14 0RF oxycodone 5 mg tablet 5 mg PO Q6H PRN (Reason: severe post-operative pain) Qty: 12 0RF Rx Instructions: Take one tablet up to every 6 hours as needed for severe pain Continued clotrimazole-betamethasone [Lotrisone] 1-0.05 % cream 1 applic Topical BID PRN (Reason: rash) Qty: 45 1RF Spiriva with HandiHaler 18 mcg capsule, w/inhalation device 1 cap inhalation DAILY Qty: 90 6RF Rx Instructions: puncture 1 cap using device; one dose = 2 inhalations hydrochlorothiazide 12.5 mg tablet 12.5 mg PO DAILY Qty: 90 12RF losartan 100 mg tablet 100 mg PO DAILY Qty: 90 12RF paroxetine HCl 20 mg tablet 20 mg PO DAILY Qty: 90 12RF metoprolol succinate 25 mg tablet extended release 24 hr 25 mg PO DAILY Qty: 90 4RF Daily Multivitamin-Minerals Tablet 1 tab PO DAILY 0RF Discontinued acetaminophen 500 mg tablet 1,000 mg PO Q8H PRN (Reason: pain) Qty: 90 3RF ibuprofen 200 mg Tablet 400 mg PO Q6H PRN (Reason: Pain) 0RF Discharge Instructions Additional Instructions: Total Hip Discharge Instructions Activity: The most important activity is to walk. You should try to take short walks a few times a day. You have no restrictions on movement or positioning, but do not try to force what you do. You will find some stiffness and weakness with hip flexion (lifting your knee). Do not try to strengthen this too early, continue to practice walking and stairs and this will come. - Outpatient physical therapy can be helpful to help return you to a normal gait and improve your flexibility and strength. This can start around 2 weeks. For some patients, it?s not necessary. Usually this is determined at the time of discharge or at the first post-operative visit. - You should wear the AMAN hose on both legs for 2 weeks. Dressing: Keep the surgical dressing in place for at least one week. After the first week it may be removed and replace with light gauze and tape or nothing. It may get wet after 3 days but avoid soaking the dressing. If it gets wet, just lightly pat dry. It is important to always keep some gauze between skin folds, especially when you are sitting. Spend some time with the wound exposed when you are lying flat as the incision does wrinkle onto itself. Medications: - You should take Tylenol and an anti-inflammatory Celebrex as your primary pain control medications. If the Celebrex is too expensive or not covered, please call the office for another alternative (Advil/Ibuprofen or Naproxen/Aleve). - You have been prescribed a stronger pain medication Oxycodone for breakthrough pain, take as needed as prescribed. - You have also been prescribed a stomach acid reduction agent Pantoprozole to help reduce stomach acid and reflux. - You will be taking Aspirin 81mg twice a day for DVT prevention unless instructed otherwise. - If you have constipation you should take Colace (which was prescribed) or Miralax (which is available [id number]). It takes most people 3-4 days to have a bowel movement. Follow-up: 2 weeks If you have any acute concerns or questions, please do not hesitate to contact the office at [phone]. You may contact Dr. Tolentino with any questions after hours through the hospital at [phone] or on his cell phone at [phone]. Stand Alone Forms: Anesthesia Discharge InstAntwan, Jasmina Strickland (DSU) Referrals: Carlyle Tolentino MD [ [facility] STAFF PHYSICIAN] - Equipment/Supplies: Walker Activity:: Activity as Tolerated Remove Dressings/Wound Care:: Do Not Remove Shower/Bathe:: Cover Diet:: As Tolerated DS: Summary Time Spent with Patient providing and/or coordinating discharge services: Greater than 30 minutes Status at Discharge Functional status at discharge: uses cane/walker Overall status at discharge: patient is progressing back to baseline Mental Status: mental status grossly normal Speech and Movement: speech and movement normal Mood: congruent mood Affect: normal affect Exam Psych Mental Status: mental status grossly normal Speech and Movement: speech and movement normal Mood: congruent mood Affect: normal affect DS: Data Vitals/I&O Vitals and I&O: Vital Signs Temperature 97.3 F L 01/24/22 07:28 Pulse 71 01/24/22 07:28 Pulse Rhythm Regular 01/24/22 07:28 Respiratory Rate 16 01/24/22 07:28 Respiratory Depth Normal 01/24/22 07:28 Blood Pressure 133/60 01/24/22 07:28 Pulse Oximetry 98 01/24/22 07:28 Oxygen Delivery Method Room Air 01/24/22 07:28 Oxygen Flow Rate 0 01/24/22 07:28 Pain Level 0 01/24/22 07:28 Intake & Output 01/23/22 01/23/22 01/24/22 11:59 23:59 11:59 Weight 163 lb 0.016 oz 161 lb 13.109 oz PFSH All Active Problems Actinic keratosis (Chronic 03/11/17) Anxiety (Chronic 10/27/13) on medication Cervical spondylosis (Chronic) Diverticulosis of colon without diverticulitis (Chronic) pandiverticulosis 07/25/11 (SIGMOID DIVERTICULOSIS) Essential hypertension (Chronic 06/17/13) Hiatal hernia (Chronic 01/07/14) 01/07/14;[facility] [place]; EGD; 1CM HIATUS HERNIA Knee pain (Chronic 08/22/04) right; neg x-ray Polyp of colon (Chronic) 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; SESSILE SERRATED ADENOMA 01/07/14; [facility] [place]; AWAITING PATH REPORT Hx of chronic arthritis (Acute) Trochanteric bursitis (Acute) Diverticulosis (Acute) Perioral dermatitis (Acute) Annual physical exam (Acute) Actinic keratoses (Acute) Iliotibial band syndrome affecting left lower leg (Acute) Steroid injection: 04/20/2021 Arthralgia (Acute) LLQ abdominal pain (Acute) Skin lesion (Acute) Osteoarthritis of left hip (Acute) Medical History Bilateral carpal tunnel syndrome (11/03/14) Bronchitis Cyst of ovary (10/27/13) Dysphagia (12/12/12) Headache (12/09/12) Heart murmur Pt. states she no longer has murmur Hypertension Numbness of face (12/09/12) Palpitations (12/09/12) Skin lesion Smoker Tachycardia (12/21/15) Pt. states she no longer has this Surgical History History of appendectomy Surgery was to remove suspected R ovarian cyst. Mass was actually on the appendix and this was removed - [facility] [place] History of bilateral ligation of fallopian tubes History of eye surgery B/L cross eye correction Hx of heart surgery possible ablation +/- defect repair-2017 pt. 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 Sister Hypertension Brother Diabetes Heart disease Hypertension Stroke Son Hypertension Social History Smoking/Tobacco Use Status: Former Tobacco Use Quit Date: 09/23/98 Tobacco: How many years used: 30 Smoking risk assessment performed?: Yes Alcohol Intake: current Alcohol Intake frequency: 3 or more drinks per day Alcohol type: wine Drug use: Never Substance use type: does not use Caregiver/Support person: No Household members: significant other Housing: house current occupation: [employer] Pets and animals: Yes Pets and animals: cat(s) Sexually active: Yes What is your relationship status?: living with partner How often do you talk on the phone with friends or family?: three or more times per week How often do you get together with friends or relatives?: once per week How often do you attend advent or latter day services?: decline to answer Do you belong to any clubs or organized social groups?: no Panel score (0-1 are the most socially isolated patients): 2 What type of physical activity do you participate in: decline to answer Duration: decline to answer Frequency: decline to answer Stella/Holiness: None Special stella needs: No Seatbelt use: always Helmet use: Yes Helmet use: always Drive intox or ride w/intox passenger coach driver: No Do you feel safe at home: Yes Do you feel safe in your relationship?: Yes Victim of physical abuse: No Victim of emotional abuse: No Victim of sexual abuse: No Would you like helpful sources: No
--- NOTE | 2022-01-24 10:44 | DI.RAD_ITS ---
Exam(s) XR HIP LT IN OR EXAM: XR HIP LT IN OR CLINICAL HISTORY: osteoarthritis left hip. TECHNIQUE: 2D and realtime digital imaging were provided in the OR. COMPARISON: No exams were available for comparison FINDINGS: Hard copy images show placement of a left hip prosthesis. The alignment appears satisfactory. Please see procedure note for details. Fluoro time 29 seconds RADIATION DOSE DELIVERED: Ka,r= 3.25 mGy
--- NOTE | 2022-01-24 10:54 | ROE_ITS ---
Date of service: 01/24/22 Time of Service: 10:56 Operative Note Operative Note DATE OF PROCEDURE: 01/24/22 PRE-OP DIAGNOSIS: Left Hip Osteoarthritis POST-OP DIAGNOSIS: same PROCEDURE: Left Anterior Total Hip Arthroplasty with Intraoperative Navigation SURGEON: Carlyle Tolentino COUNTY ASSESSOR: Elizabeth Hoffmann ANESTHESIA TYPE: Spinal Refer to Anesthesia Record ESTIMATED BLOOD LOSS: 100 PATHOLOGY: none sent TOURNIQUET TIME: 0 COMPLICATIONS: Other (Small crack of the posterior neck without exit terminating above the lesser troch) Patient was transported to: PACU Patient's condition: stable Implants: 1. Depuy [place] Acetabular Component, 48mm 2. Depuy Acetabular Liner, [id number] 3. Depuy Corail Standard 125deg Collared Femoral Stem, Size 11 4. Depuy Altrx Ceramic Femoral Head, Size 32+1mm Indications: I have seen Helen in clinic for symptoms of hip arthritis, confirmed with radiographic findings. She has exhausted nonoperative methods and was having significant limitations in daily function and desired better function and less pain. I discussed the technical details of a hip replacement. I explained the risks of the procedure to include, but not limited to, bleeding, infection, pain, stiffness, fracture, damage to nerves and vessels, damage to muscles and tendons, loosening, instability, leg length inequality, need for repeat procedure, blood clot and cardiopulmonary demise. Despite these risks, Helen elected to proceed. Findings: There was significant signs of arthritis throughout the hip. Procedure Description: Helen was greeted in the preoperative holding area where the correct side was identified and marked. The consent was reviewed with the patient and signed. The history and physical was updated. All questions were answered. She was taken back to the operating room. A spinal anesthestic was then administered. The feet were wrapped with cast padding and Coban and then placed into the boot liners and then into the boots. Care was taken to protect the skin and make sure the heels were fully down and the boots were stable. The patient was then positioned onto the HANA table. Both legs were held in a ne utral position. SCDs were applied. The patient was then slid down onto a peroneal post. Prophylactic antibiotics in the form of Cefazolin were administered. 1g of Tranxemic Acid was given intravenously within 30 minutes of incision. The left leg was then prepped with Chloraprep and draped in a standard fashion. A second prep with Chloraprep was performed prior to placement of a shower-curtain type drape with Iodine impregnated skin protection. A timeout to confirm correct identity, side and site, procedure, allergies, anesthesia, and medical concerns was performed. An obliquely oriented incision was made starting lateral to the ASIS and running distal over the Tensor Fascia Keisha (TFL) muscle belly toward the fibular head, approximately 10cm. The skin and soft tissue was dissected sharply, through Pj?s fascia, and to the fascia of the TFL. With the fascia and superior border of the IT band identified, the fascia was incised with a new knife just above any perforators from the IT band. The TFL muscle belly was bluntly dissected away from the fascia and moved laterally. The fat between TFL and rectus was identified to ensure the dissection was not within the TFL. Blunt dissection created space between abductors and the capsule and retractor was placed over the lateral femoral neck. The fibers of the rectus femoris tendon were identified and these were freed from the anterior capsule. A second cobra retractor was placed around the medial femoral neck. The TFL was further retracted laterally to show the deep fascia. Careful dissection through this layer identified three main crossing vessels of the lateral femoral circumflex. These were cauterized in multiple locations and then cut without any noticeable bleeding. The TFL was further released bluntly from the deep fascia to expose anterior hip capsule and fat The Zaki orthopaedic retractor was then placed beneath the TFL and against sartorius and medial soft tissues to protect and retract the soft tissues. A T-capsulotomy was then performed starting at the superior lateral acetabulum and moving distally to the intertrochanteric ridge. These capsular flaps were tagged with a No. 1 Ethibond and elevated from within. The capsular flaps were released to the shoulder of the lateral neck and to the lesser trochanter to give excellent visualization of the proximal femur. A neck osteotomy was performed using an oscillating saw based on preoperative templates. This cut started in the shoulder and of the lateral neck and exited medially. The saw was at all times directed medially to avoid injury to the greater trochanter. Gross traction was applied to the leg and the osteotomy opened. The femoral head was removed with a corkscrew, making sure to protect the TFL on its exit. Traction was released after head removal. This was measured on the back table to determine the starting reamer size. Portions of the rectus obscuring visualization were minimally elevated off the superior acetabulum. An anterior retractor was placed over the anterior wall between capsule and labrum and attached to the Gripper retraction system. The femur was rotated to 90 degrees and medial capsule was fully released until the lesser trochanter was palpable and visible; the femur was returned to 30 degrees. A posterior retractor was placed similarly between capsule and labrum. This provided excellent visualization. The contents of the cotyloid fossa were removed with electrocautery and the labrum was removed with a knife. Acetabular reaming began with a 44mm reamer. This first reaming was directed anterior to posterior and medial to get down to the true floor. This was inspected and reamed until the true floor was reached. The anterior retractor was then released and entry and exit was provided by traction on the capsular flaps. I then reamed sequentially up to a 48mm reamer where good fit was obtained. The larger reamers were oriented based on anatomical reference of the anterior and lateral devlin to ensure proper abduction and anteversion. Positioning and size was confirmed with the fluoroscopy. A 48mm Depuy [place] acetabular component was selected. The acetabulum was reamed around the periphery with the selected acetabular size to prevent a rim fit. The deep tissues were irrigated. The acetabular component was then impacted in a position of about 40-45 degrees of abduction and 15-20 degrees of anteversion, using the patient?s anatomy as the ultimate landmark. Fluoroscopy was used to confirm this. There was excellent drafter plumbing of the acetabular component and the inserting handle was removed. The acetabular liner, Depuy [id number] polyethylene liner, was inserted and lined up with the tines of the acetabular component. There was no soft tissue inte rposition. The liner was then impacted into position and confirmed to be well- seated. A portion of the yessenia-articular cocktail was then injected around the acetabulum into the capsule and periosteum. This cocktail consisted of 123mg of Ropivacaine, 0.25mg of Epinephrine, 0.04mg of Clonidine, and 15mg of Ketorolac, diluted to 50cc. The leg was rotated to 120 degrees. Any remaining medial capsule was released until the lesser trochanter was easily palpable. A retractor was placed medially. The lateral capsule was further released into the shoulder to allow access to the greater trochanter. A Stauffer retractor was placed over the greater trochanter which allowed the trochanter to flip in front of the capsule for excellent exposure. The leg was brought down into maximal extension and 20 degrees of adduction while ensuring there was no impingement on the acetabulum. Any remnant capsule within the trochanter was released. Piriformis and obturator externis were identified and protected. There was excellent access to the proximal femur. The lateral neck remnant was removed with a rongeur. A blunt canal probe was used to identify the canal and trajectory for later broaching. A box osteotome initiated the broach course. A small curved rasp and a curved curette were used to work laterally. Broaching then began with a size 8 Corail broach. This was inserted manually around the trochanter and into the canal before mallet blows. The broach was seated to a few millimeters below the cut level based on the neck cut and the preoperative template. Sequential broaching was continued with the Dahu pneumatic broaching device until a tight fit was obtained with good rotational control of the femur. A trial standard 125 neck was inserted along with a +5 trial head. The leg was brought out of extension and adduction and then reduced with traction and internal rotation. The leg was stable anteriorly in a position of 30 degrees of extension and 90 degrees of external rotation. Fluoroscopy was used to ensure there was no fracture and the stem was seated well. Leg lengths were checked with an AP pelvis and pelvic reference points. [employer] (Vantage) navigation system was used to confirm appropriate positioning and leg length and offset. This had overcorrected the leg length but by advancing the stem another 3-4 mm and going to a +1mm head, this would be corrected. Once content with the desired offset and leg lengths, the leg was brought back into extension, external rotation and adduction. I removed the broach to go back down in size to advance the stem. At this point, there was noted to be a crack of the posterior cortex of the femoral neck. This was probed with a Rutherford and did not seem to have any exit point and extended only about 10 to 12 mm distally. It was unable to be distracted. I therefore continued with advancing a broached starting with a size 10 and then up to size 11. There is no significant gapping of this crack at that time. I used a planar to plane the femoral neck level with the broach. Once again this was inspected and showed no gapping. The broach handle was placed back onto the stem and I attempted manual external/inte rnal rotation of the stem to ensure that it was stable. There is no motion of the stem and no gapping of the fracture. Therefore, I did not place any cables or perform any other additional procedures for this as it was deemed to be a stable crack bypassed by the stem and not critical for stability The periosteum and surrounding tissue was injected with remaining portion of the yessenia-articular cocktail. The proximal femur was irrigated as well as the deep tissues. The Depuy Corail standard 125 deg collared stem, size 11, was then manually inserted into the proximal femur making sure to control rotation. It was then malleted into position with light blows, giving breaks to allow bone expansion and decrease risk of fracture. The selected Depuy Altrx Ceramic Head, size 32+1mm, was then placed onto the clean and dry trunnion and secured with impaction onto the tapered fit. The leg was brought back out of extension and adduction and reduced with traction and internal rotation. Stability was confirmed with no shuck at 90 degrees of external rotation and 30 degrees of extension. No impingement through range of motion arc. Final x-ray images were obtained with fluoroscopy to confirm adequate positioning. No fracture was identified on the x-ray. The fracture which was previously identified was unable to be further investigated as it was not seen after final stent placement. The deep tissues were thoroughly irrigated with Surgiphor, betadine solution. This was allowed to sit in the wound for 3 minutes before being thoroughly irrigated out with normal saline. The capsule was then reapproximated with the previously placed Ethibond sutures. The TFL fascia was finally closed with a No. 2 Stratafix, barbed suture. Deep tissues were then reapproximated with 0 Vicryl and a running 2-0 Vicryl. The skin was closed with a running 4-0 Monocryl in a subcuticular fashion. This was reinforced with skin glue. A Mepilex silver dressing was applied. At the end of the case, all counts were correct. Helen was transferred to the hospital bed without difficulty and suffering a small but stable crack of the posterior femoral neck requiring no further intervention Helen has a good prognosis. Physical therapy will start today and without restrictions, weight-bearing as tolerated. Aspirin 81mg BID will be used for DVT prophylaxis.
--- NOTE | 2022-01-24 12:11 | W.ANESPOSTOP ---
Postoperative Evaluation Date, Time and Location Date Performed: 01/24/22 Time Performed: 12:12 Patient Location: PACU Vital Signs Most Recent Imported Vital Signs: Most Recent Vital Signs Temp Pulse Resp BP Pulse Ox 36.2 C L 57 L 16 102/57 L 100 01/24/22 11:55 01/24/22 11:55 01/24/22 11:55 01/24/22 11:55 01/24/22 11:55 Pain Score Most Recent Pain Score: Most Recent Pain Score Pain Level 0 01/24/22 11:55 Assessment Mental Status: Awake (Alert & Oriented to Patient Baseline) Airway and Respiratory Function: Patent airway with normal (patient baseline) respiratory exam Cardiovascular Function: Hemodynamically Stable Hydration Status: Adequately Hydrated Nausea & Vomiting: No Nausea or Vomiting Pain: Pt. Denies Any Pain Peripheral Nerve Block: Patient did not receive a nerve block
[2022-01-24] MEDS: oxyCODONE 5 MG TAB PO (12:40)
--- NOTE | 2022-01-24 15:05 | PT.INIE ---
Date of service: 01/24/22 Time of Service: 15:05 PT Notes Visit Reasons: Left hip DJD Physical Therapy Day Surgery Initial Evaluation Date: 01/24/2022 Referring Doctor: ELLE Bernard PT Orders: PT CONSULT: S/p Ortho surgery Precautions: WBAT on left LE with AD. Patient Profile/Admitting Diagnosis: Nomi is a 71-year-old female with degenerative joint disease of the left hip and is status post left anterior total hip arthroplasty on postoperative day 0. PMHX: Medical History?(Updated 12/01/21 @ 09:24 by ELLE Spence) Bilateral carpal tunnel syndrome (11/03/14) Bronchitis Cyst of ovary (10/27/13) Dysphagia (12/12/12) Headache (12/09/12) Heart murmur Hypertension Numbness of face (12/09/12) Palpitations (12/09/12) Skin lesion Smoker Tachycardia (12/21/15) Surgical History?(Updated 01/22/22 @ 08:15 by Elizabeth Hoffmann) History of appendectomy Surgery was to remove suspected R ovarian cyst. Mass was actually on the appendix and [facility] of [facility] History of eye surgery B/L cross eye correctionHx of heart surgery possible ablation +/- defect repairStatus post arthroscopy of left knee lateral releaseStatus post total hip replacement, right (04/20/20) Social History/Home Situation: Helen lives with are in a private home with 9 steps to enter and 2 rails that are a little far apart.? Another set of 10 steps lead to the bedroom on the second floor.? She is independent with all aspects of ADL prior to surgery not needing any assistive ambulatory device nor adaptive equipment. Equipment Owned/DME: None Subjective: Patient reports 10/10 pain in the left hip and thigh at rest. Nurse Deborah gave patient Oxycodone 15 minutes prior to PT visit. Agreeable to trying out getting out of bed and using the bathroom. Reported being lightheaded and nauseated after walking inside room and needed to be sat on bedside recliner for safety Objective: General Observation: Patient resting quietly in bed when PT arrived.? Mepilex Ag over surgical incision.? IV in the left UE.? Bilateral TEDS on.? Cold pack on left hip. Mental Status: Alert and oriented x4 Pain: 10/10 at rest, 6-7/10 with movement Vital Signs: Hypotensive episode with BP in the 90s/30s mmHg taken by nurse Cabrera after a very short distance in-room ambulation. ROM: Right Lower Extremity: Hip flexion WFL. Hip abduction WFL. Knee flexion WFL. Ankle dorsiflexion WFL. Ankle plantarflexion WFL. Left Lower Extremity: Hip flexion WFL. Hip abduction WFL. Knee flexion WFL. Ankle dorsiflexion WFL. Ankle plantarflexion WFL. Strength: Right Lower Extremity: Hip flexors 5/5. Hip abductors 5/5. Knee flexors 5/5. Knee extensors 5/5. Ankle dorsiflexors 4/5. Ankle plantarflexors 5/5. Left Lower Extremity: Hip flexors 3/5. Hip abductors 3/5. Knee flexors 5/5. Knee extensors 4-/5. Ankle dorsiflexors 4/5. Ankle plantarflexors 5/5. Sensation: Intact as to pain and pressure on bilateral lower extremities. Bed Mobility/Transfers: Supine to sit stand by assist Sit to stand contact guard assist Stand to sit first visit contact guard assist, second visit stand by assist Bed to chair first visit contact guard assist, second visit stand by assist Gait: Patient was instructed to complete about 12 feet from bedside to toilet seat to void urine and from toilet seat to bedside recliner for about 15 feet using the FWW before she was asked to sit down, contact guard assist provided. This PT requested patient to sit down and asked Nurse Cabrera to take VS when patient stated that she felt lightheaded and nauseated. BP was in the 90s/high 30s and then went up to low 100s/low 70s after about 5 minutes of rest. Patient did not feel quite safe to walk again when another trial of standing up was initiated by PT. Further walking was deferred at this point for safety reasons and patient was seen later for continued mobility assessment. After about 1.5 hours, patient tolerated ambulation of about 50 feet with no symptoms with stand by assist using FWW. Stairs: During the second visit, patient completed 3 x 6-inch steps while holding onto B rails for support with step-to gait pattern requiring only stand by assist Balance: Static Sitting: Normal Dynamic Sitting: Normal Static Standing: Fair Dynamic Standing: Fair Special Tests: Mobility Limitations Standardized Measure [facility] 6 clicks Basic Mobility Inpatient Short Form: Raw Score: 18? CMS Score: 36% deficit? ? ? Informed Consent/Education:? Patient instructed in purpose of PT consult and plan of care. Assessment: Mary demonstrates functional mobility decline requiring the use of a front wheeled walker for all mobility ADL performance, difficulty with a with walking, and balance impairment due to postoperative status.? Mobility assessment was limited today by report of increased lightheadedness and a hypotnsive episode that resolved with increased recovery time. Nomi is a 71-year-old female with degenerative joint disease of the left hip and is status post left anterior total hip arthroplasty on postoperative day 0. Patient presents with clinical signs and symptoms consistent with current/admitting diagnoses that have resulted to mobility limitations, gait instability, generalized weakness, and impairment of motor control as demonstrated by the following impairment level findings: 1.? Decreased strength to left hip major muscle groups 2.? Impaired standing balance 3.? Impaired activity tolerance Impairments are contributing to the following functional limitations: 1.? Inability to safely ambulate without assistive device and physical assistance 2.? Increase completion time for mobility ADL performance 3.? Increased fall risk 4.? Inability to negotiate steps alone safely Patient is assessed as a 08145 moderate complexity based on the following: History: 69 [id number]? with impairment level findings, functional limitations, and past medical history as indicated above Examination: Demonstrable impairment in strength, balance, and mobility level with underlying impairments and functional limitations as documented above Presentation: Evolving Decision Makin moderate complexity Goals: N/A. PT evaluation and one treatment session only for functional mobility retrainign and HEP instruction. Plan of Care/Treatment Plan: N/A. PT evaluation and one treatment session only for functional mobility retrainign and HEP instruction. DISCHARGE RECOMMENDATIONS: Home when medically cleared by orthopedic surgeon.? Outpatient PT services to facilitate return to premorbid independent mobility level without an AD. TREATMENT CODE/TIME: 56038 x 20 minutes, 44708 x 23 minutes beginning at 13:07 PM and 15:05 PM. Thank you for the opportunity to participate in the care of this patient. Madisyn Kaur PT, DPT, CLT [facility], [place]
== END 2022-01-24 15:33 | disposition home or self-care (01) ==
PROVIDERS: PCP Family Medicine; Visit Provider Student in an Organized Health Care Education/Training Program
PROC: (CPT 27130; principal; 2022-01-24 09:30)
DX: M16.12 Unilateral primary osteoarthritis, left hip (principal); I10 Essential (primary) hypertension; K21.9 Gastro-esophageal reflux disease without esophagitis
CPT/HCPCS: 27130; 20985; 97162; 97530; 73501; J0690; J2001; J2250; J2370; J2405

== ENCOUNTER 2022-02-08 10:15 | Outpatient (CLI) | payer BC, SELFPAY ==
--- NOTE | 2022-02-08 10:10 | DI.RAD_ITS ---
Exam(s) XR HIP LT COMPLETE AP PELVIS EXAM: XR HIP LT COMPLETE AP PELVIS CLINICAL HISTORY: 1ST POST OP L KAREN. TECHNIQUE: 2D digital imaging was performed of the left hip. Three views were obtained. AP pelvis and lateral left hip views were obtained. COMPARISON: CR XR HIP LT COMPLETE AP PELVIS from 12/01/2021 XA XR HIP LT IN OR from 01/24/2022 FINDINGS: BONES: No acute fracture is present. No bony destructive lesion is seen. JOINTS: No dislocation present. There are stable postsurgical changes of a left total hip replacement . Patient prior right total hip is incompletely imaged and gross unremarkable. SOFT TISSUE: Normal. IMPRESSION: Stable left TKR. DATA REPOSITORY: RADIATION DOSE DELIVERED:
== END 2022-02-08 10:16 | disposition home or self-care (01) ==
LOC: DIORS 10:15
PROVIDERS: PCP Family Medicine; Referring Provider Family Medicine; Visit Provider Student in an Organized Health Care Education/Training Program
DX: Z96.642 Presence of left artificial hip joint (principal); Z47.1 Aftercare following joint replacement surgery
CPT/HCPCS: 73502

== ENCOUNTER 2022-04-20 11:02 | Outpatient (CLI) | payer BC, SELFPAY ==
--- NOTE | 2022-04-20 10:45 | DI.RAD_ITS ---
Exam(s) XR KNEE RT 3V AP,LAT,ELYSIA EXAM: XR KNEE RT 3V AP,LAT,ELYSIA CLINICAL HISTORY: right knee pain. TECHNIQUE: 2D digital imaging was performed of the right knee. Four views obtained. AP, lateral and PA tunnel views were obtained. COMPARISON: No priors for comparison. FINDINGS: BONES: No acute fracture is present. No bony destructive lesion is seen. There is a small enthesophyt e at the superior patella. JOINTS: The knee is normally aligned. No joint effusion is seen. SOFT TISSUE: Normal. IMPRESSION: Unremarkable radiographs of the right knee. DATA REPOSITORY: RADIATION DOSE DELIVERED:
== END 2022-04-20 11:03 | disposition home or self-care (01) ==
LOC: DIORS 11:02
PROVIDERS: PCP Family Medicine; Referring Provider Family Medicine; Visit Provider Physician Assistant
DX: M25.561 Pain in right knee (principal); M70.51 Other bursitis of knee, right knee
CPT/HCPCS: 73562

== ENCOUNTER → 2022-06-15 00:19 | Outpatient (CLI) | payer BC, SELFPAY ==
--- NOTE | 2022-06-15 07:45 | DI.MRI_ITS ---
Exam(s) MR LOWER JOINT RT WO EXAM: MR LOWER JOINT RT WO CLINICAL HISTORY: PAIN,INTERNAL DERANGEMENT,PES ANSERINUS BURSITIS,M70.51,M23.91. TECHNIQUE: Multiplanar multisequence MRI was performed. COMPARISON: CR XR KNEE RT 3V AP,LAT,ELYSIA from 04/20/2022 FINDINGS: BONES: There is no fracture. There is edema in the inferomedial aspect of the medial femoral condyle c which could represent a mild bone contusion versus degenerative signal change. JOINTS: A moderate-sized joint effusion is seen. Joint effusion is present. Articular cartilage: Patellofemoral joint: Mild cartilage thinning without focal defect. Medial femoral tibial joint: Cartilage thinning without visible focal defect. Lateral femoral tibial joint: Articular cartilage is unremarkable. TENDONS: Extensor mechanism: Unremarkable. Medial retinaculum: Unremarkable. Lateral retinaculum: Unremarkable. Popliteus: The tendon is intact. There is a small amount of surrounding fluid Pes anserine tendons appear intact. MUSCLES: There is mild edema in the distal vastus medialis muscle MENISCI: The medial meniscus appears diminutive. There is some irregular increased intrasubstance si gnal in the body and posterior horn consistent with degenerative signal changes. No discrete tear is visible. The lateral meniscus is unremarkable. SOFT TISSUES: There is a small bilobed Meredith's cyst. LIGAMENTS: Anterior Cruciate: Unremarkable. Posterior Cruciate: Unremarkable. Medial Collateral:Mild amount of surrounding edema. No visible focal tear. Lateral Collateral: Unremarkable. OTHER: No evidence of pes anserinus bursitis IMPRESSION: Diminutive appearance of the medial meniscus which could be secondary to prior surgery or represent d egenerative changes. No discrete tear. Mild contusion versus degenerative signal changes in the medi al femoral condyle. Joint effusion and small Meredith's cyst. No evidence of pes anserine bursitis. DATA REPOSITORY:
== END ==
PROVIDERS: PCP Family Medicine; Visit Provider Student in an Organized Health Care Education/Training Program
DX: M71.21 Synovial cyst of popliteal space [Baker], right knee (principal); M70.51 Other bursitis of knee, right knee
CPT/HCPCS: 73721

== ENCOUNTER 2022-12-19 01:27 | Outpatient (CLI) | payer BC, SELFPAY ==
--- NOTE | 2022-12-19 13:05 | DI.MAMMO_ITS ---
Exam(s) MAMMO SCREENING EXAM: MAMMO SCREENING CLINICAL HISTORY: screening,z12.39 TECHNIQUE: Bilateral full field digital CC and MLO mammographic images were obtained with 3D tomosyn thesis and utilizing computer aided detection (CAD). COMPARISON: Available for comparison. FINDINGS: Masses/Architectural Distortion: None seen. Microcalcifications: No suspicious pleomorphic-type are seen. Skin Thickening/Nipple Retraction: None. IMPRESSION: 1. No significant interval change with no specific features of malignancy noted. 2. Unless there is more urgent need, screening mammography is recommended, as per [employer] guidelines. BI-RADS Category 1 - Negative Breast Density - Category B - Scattered areas of fibroglandular density Breast density category C or D implies that the patient has dense breast tissue. Dense breast tissue is very common and is not abnormal but dense breast tissue can make it harder to find cancer on a ma mmogram. Also, dense breast tissue may increase their breast cancer risk. This information about the result of the mammogram report was provided to the patient to raise their awareness. Use this report when you speak with the patient about their risks for breast cancer, which includes their family hist ory. At that time, you may recommend for more screening tests (Ultrasound or MRI) as they might be us eful based on their risk. A negative radiographic report should not delay biopsy if a dominant or clinically suspicious mass is present. Up to ten percent of cancers are not identified on mammography. A negative report may reinforce clinical impression. Adenosis and dense breasts may obscure an underlying neoplasm. False positive reports average 6 to 10%. Patient will receive a letter notifying them of these results.
== END 2022-12-19 01:47 ==
PROVIDERS: PCP Family Medicine; Visit Provider Family Medicine
DX: Z12.31 Encounter for screening mammogram for malignant neoplasm of breast (principal)
CPT/HCPCS: 77063; 77067

== ENCOUNTER 2023-04-01 01:26 | Outpatient (CLI) | payer BC, SELFPAY ==
--- NOTE | 2023-04-01 07:15 | DI.RAD_ITS ---
Exam(s) XR THORACIC SPINE COMPLETE EXAM: XR THORACIC SPINE COMPLETE CLINICAL HISTORY: mid back pain after fall - 3 months ago,[id number]. TECHNIQUE: 2D digital imaging was performed. COMPARISON: No exams were available for comparison FINDINGS: 3 views No evidence compression fracture, listhesis, nor significant disc space narrowing. No scoliosis. No abnormal widening of the paraspinal lines. Bone density is age-appropriate. No osseous lesions bobby dent. IMPRESSION: No significant osseous findings in the thoracic spinal column. DATA REPOSITORY: RADIATION DOSE DELIVERED:
--- NOTE | 2023-04-01 07:15 | DI.RAD_ITS ---
Exam(s) XR RIBS RT W PA LAT CHEST EXAM: XR RIBS RT W PA LAT CHEST CLINICAL HISTORY: fall, rib 6,7,8 pain,W19.xxa TECHNIQUE: 2D digital imaging was performed. COMPARISON: No exams were available for comparison FINDINGS: RIBS five views-right- There are no obvious acute rib fractures evident. No lytic rib lesions identified. CXR- 2 VIEWS: No lung contusion or pneumothorax. There is no pleural effusion evident. There is platelike atelect asis in the opposite-left lung base. Heart size is normal and there is no significant mediastinal widening. IMPRESSION: 1. No obvious right rib fractures evident. Also no significant rib lesions. 2. No ipsilateral lung nor pleural abnormality evident. No pneumothorax. Platelike atelectasis or scarring in the opposite-left lung bases noted. DATA REPOSITORY: RADIATION DOSE DELIVERED:
== END 2023-04-01 01:46 ==
LOC: DI 01:26
PROVIDERS: PCP Family Medicine; Visit Provider Family Medicine
DX: M54.6 Pain in thoracic spine (principal); R07.81 Pleurodynia; J98.11 Atelectasis; W19.XXXD Unspecified fall, subsequent encounter
CPT/HCPCS: 71046; 71100; 72072

== ENCOUNTER 2023-05-17 07:47 | Day surgery (SDC) | payer BC, SELFPAY ==
--- NOTE | 2023-05-17 07:23 | ROE_ITS ---
Date of service: 05/17/23 Time of Service: 10:00 Operative Note Operative Note DATE OF PROCEDURE: 05/17/23 PRE-OP DIAGNOSIS: Right middle trigger finger PROCEDURE: Right middle finger trigger release, CPT# 94837 SURGEON: Wilber Burrell BUSINESS SERVICES INTERN: None None ANESTHESIA TYPE: Local By Surgeon Refer to Anesthesia Record ESTIMATED BLOOD LOSS: 2 TOURNIQUET TIME: 0 COMPLICATIONS: None Patient was transported to: same day Patient's condition: stable Indications: Please see complete medical record for details. Procedure Description: In the operating room, local anesthesia was induced. The patient was positioned supine on the stretcher. All bony prominences were well-padded. Preoperative antibiotics were omitted. The right hand was prepped and draped in the usual sterile fashion. The correct patient, procedure, and side of the procedure were all verified prior to incision. Proper analgesia was confirmed. A small volar longitudinal approach was made at the base of the middle finger overlying the MCP joint. Soft tissues were swept to the sides and retracted to expose the A1 quynh. The release was started centrally with a knife and completed at the proximal and distal margins with tenotomy scissors. Care was taken to protect flexor tendons. The tendons were inspected and showed some mild bulbous degeneration, but no significant tearing. Appropriate flexor tendon excursion was confirmed. Patient readily demonstrated full range of motion of the finger without triggering. The small incision was irrigated and then dried. Hemostasis was appropriate. The incision was closed using 3-0 nylon in a horizontal mattress fashion. Xeroform was applied followed by gauze and the hand was gently compressed with an Henri bandage. The patient tolerated local anesthesia without complication and was transferred out of the operating room in a stable condition.
--- NOTE | 2023-05-17 07:23 | W.PM.DSUDISC ---
Date of service: 05/17/23 Time of Service: 11:00 Discharge Plan Disposition Patient Disposition: Home Condition: Stable Discharge Details Attending Provider: Wilber Burrell Primary Care Provider: Paty Leonardo Home Meds and New Rx's Prescriptions: Continued clotrimazole-betamethasone [Lotrisone] 1-0.05 % cream 1 applic Topical BID PRN (Reason: rash) Qty: 45 1RF acetaminophen 500 mg tablet 1,000 mg PO Q8H PRN Qty: 90 0RF Rx Instructions: Take two tablets up to every 8 hours as needed for pain paroxetine HCl 20 mg tablet 10 mg PO DAILY Qty: 90 12RF Spiriva with HandiHaler 18 mcg capsule, w/inhalation device 1 cap inhalation DAILY Qty: 90 6RF Rx Instructions: puncture 1 cap using device; one dose = 2 inhalations Shingrix (PF) 50 mcg/0.5 mL suspension for reconstitution 0.5 ml IM ONCE Qty: 1 1RF Rx Instructions: as a single dose. Repeat in 2 months losartan 100 mg tablet 100 mg PO DAILY Qty: 90 12RF metoprolol succinate 25 mg tablet extended release 24 hr 12.5 mg PO DAILY Qty: 45 4RF hydrochlorothiazide 12.5 mg tablet 12.5 mg PO DAILY Qty: 90 12RF Daily Multivitamin-Minerals Tablet 1 tab PO DAILY Discharge Instructions Additional Instructions: Surgery: Right middle finger trigger release Activity: Protect hand for a few weeks. Gently increase finger motion and hand gripping to prevent stiffness. Recommend elevation to minimize swelling and discomfort. Prescriptions: None Resume home medicines, use [id number] Tylenol (acetaminophen) as needed for mild pain and ibuprofen (Advil) or naproxen (Aleve) as needed for moderate to severe pain and swelling. Dressings: Leave dressing in place for 3 days. May then remove and leave open to air or cover incision with Band-Aid. May get wet after 5 days. Follow-up: 10-[address] Burrell Please call the office during business hours with any questions or concerns. Discharge Orders Discharge Orders: Discharge Order (Routine); Ordered 05/17/23 Ordered By: Wilber Burrell DS: Diagnosis Discharge Diagnosis (1) Trigger finger, right middle finger: Status: Acute
[2023-05-17 08:11] VITALS: BP 119/60; PULSE 74; RESP 16; TEMP 36.7; O2SAT 96
[2023-05-17] MEDS: Lidocaine 1% Pres-Free W/EPI 1/200,000 30 ML VIAL (10:09)
[2023-05-17] MEDS: Sodium Bicarbonate 50 MEQ/50 ML VIAL (10:09)
[2023-05-17 10:20] VITALS: BP 128/59; PULSE 69; RESP 16; TEMP 36; O2SAT 95
== END 2023-05-17 10:42 | disposition home or self-care (01) ==
LOC: SUR 07:48
PROVIDERS: PCP Family Medicine; Visit Provider Student in an Organized Health Care Education/Training Program
PROC: (CPT 26055; principal; 2023-05-17 09:45)
DX: M65.331 Trigger finger, right middle finger (principal)
CPT/HCPCS: 26055

== ENCOUNTER 2023-06-19 10:01 | Day surgery (SDC) | payer BC, SELFPAY ==
[2023-06-19] VITALS (12 sets, daily range): BP systolic 94–142; BP diastolic 32–69; PULSE 52–75; RESP 14–19; TEMP 36–36.8; O2SAT 93–99; BMI 27.1
--- NOTE | 2023-06-19 09:19 | PDOC.DSDIS_ITS ---
Date of service: 06/19/23 Time of Service: 09:19 Discharge Plan Disposition Patient Disposition: Home Condition: Good Discharge Details Reason For Visit: R knee arthroscopy Attending Provider: Carlyle Tolentino Primary Care Provider: Paty Leonardo Home Meds and New Rx's Prescriptions: New acetaminophen 500 mg tablet 1,000 mg PO TID Qty: 90 0RF hydrocodone-acetaminophen 5-325 mg tablet 1 tab PO Q6H PRN (Reason: pain) Qty: 10 0RF ibuprofen 600 mg tablet 600 mg PO TID PRN (Reason: pain) Qty: 90 0RF Continued clotrimazole-betamethasone [Lotrisone] 1-0.05 % cream 1 applic Topical BID PRN (Reason: rash) Qty: 45 1RF tiotropium bromide [Spiriva with HandiHaler] 18 mcg capsule, w/inhalation device 1 cap inhalation DAILY Qty: 90 6RF Rx Instructions: puncture 1 cap using device; one dose = 2 inhalations Shingrix (PF) 50 mcg/0.5 mL suspension for reconstitution 0.5 ml IM ONCE Qty: 1 1RF Rx Instructions: as a single dose. Repeat in 2 months paroxetine HCl 20 mg tablet 20 mg PO DAILY losartan 100 mg tablet 100 mg PO DAILY Qty: 90 12RF metoprolol succinate 25 mg tablet extended release 24 hr 12.5 mg PO DAILY Qty: 45 4RF hydrochlorothiazide 12.5 mg tablet 12.5 mg PO DAILY Qty: 90 12RF Daily Multivitamin-Minerals Tablet 1 tab PO DAILY Discontinued acetaminophen 500 mg tablet 1,000 mg PO Q8H PRN Qty: 90 0RF Rx Instructions: Take two tablets up to every 8 hours as needed for pain Discharge Instructions Stand Alone Forms: Randa Knee Arthroscopy Referrals: Carlyle Tolentino MD [ [facility] STAFF PHYSICIAN] - Equipment/Supplies: Partial Weight Bearing Crutches Activity:: Activity as Tolerated Remove Dressings/Wound Care:: 72 hours Shower/Bathe:: 72 hours Diet:: As Tolerated Discharge Orders Discharge Orders: Discharge Order (Routine); Ordered 06/19/23 Ordered By: Julián Glover DS: Diagnosis Discharge Diagnosis (1) Complex tear of medial meniscus of right knee: Status: Acute
--- NOTE | 2023-06-19 09:21 | W.ANESPRE ---
General Info Date of Service Date Performed: 06/19/23 Height: 5 ft 3 in Weight: 69.4 kg Body Mass Index (BMI): 27.1 Surgical Procedure: Operation Date: 06/19/23 13:25 Proposed Procedure Side Surgeon p Knee Arthroscopy, Partial Medial Menisectomy Right Carlyle Tolentino MD Meds Allergies and Home Medications Allergies Allergy/AdvReac Type Severity Reaction Status Date / Time lisinopril Allergy Intermediate I cant Verified 06/19/23 10:22 remember it was quite awhile ago amlodipine AdvReac Unknown edema Verified 06/19/23 10:22 diltiazem AdvReac Nausea and Verified 06/19/23 10:22 headaches Home Medication Medication Instructions Recorded multivitamin with minerals (Daily 1 tab PO DAILY 07/14/19 Multivitamin-Minerals tablet) clotrimazole-betamethasone 1 1 applic topical BID PRN rash #45 08/27/19 %-0.05 % topical cream (Lotrisone) grams losartan 100 mg tablet 100 mg PO DAILY #90 tab-caps 11/04/22 tiotropium bromide 18 mcg capsule 1 cap inhalation DAILY #90 11/22/22 with inhalation device (Spiriva inhalations with HandiHaler) varicella-zoster glycoE [id number] 0.5 ml IM ONCE #1 ea 11/22/22 adj(PF) 50 mcg/0.5 mL IM susp, kit (Shingrix (PF)) metoprolol succinate 25 mg 12.5 mg PO DAILY #45 tabs 12/17/22 tablet,extended release 24 hr hydrochlorothiazide 12.5 mg tablet 12.5 mg PO DAILY #90 tab-caps 02/13/23 paroxetine HCl 20 mg tablet 20 mg PO DAILY 06/13/23 acetaminophen 500 mg tablet 1,000 mg PO TID #90 tabs 06/19/23 hydrocodone 5 mg-acetaminophen 325 1 tab PO Q6H PRN pain #10 tabs 06/19/23 mg tablet ibuprofen 600 mg tablet 600 mg PO TID PRN pain #90 tabs 06/19/23 Current Visit Medications: Current Medications Generic Name Dose Route Start Last Admin Trade Name Freq PRN Reason Stop Dose Admin Acetaminophen 650 mg 06/19/23 09:17 Acetaminophen 325 Mg Tab PO 07/19/23 09:16 Q4H PRN PRN Hydrocodone Bitart/Acetaminophen 0 tab 06/19/23 09:17 Hydrocodone 5/Acetaminophen 325 Tab PO 07/19/23 09:16 Q3H PRN PRN Pain Ringer's Solution 1,000 mls @ 80 mls/hr 06/19/23 06:00 IV 07/18/23 23:59 INFUSION CARMELINA Cefazolin Sodium/Dextrose 2 gm in 50 mls @ 100 mls/hr 06/19/23 06:00 Ancef Duplex IVPB 06/19/23 16:00 PREOP CARMELINA IV Miscellaneous Supplies 1 each 06/19/23 06:00 Iv Access IV 07/18/23 23:59 DIRECTED CARMELINA Sodium Chloride 0 ml 06/19/23 06:00 Normal Saline Flush 10 Ml Syr IV 07/18/23 23:59 PRN PRN Sodium Chloride 0 ml 06/19/23 06:00 Normal Saline 10 Ml Vial IJ 07/18/23 23:59 DIRECTED PRN Sterile Water 0 ml 06/19/23 06:00 Water,Injection,Sterile 10 Ml Vial IJ 07/18/23 23:59 DIRECTED PRN PFSH Active Problems Active Problems: Problem Status Onset Code Complex tear of medial meniscus of right knee S83.231A Trigger finger, right middle finger M65.331 Rib pain on right side R07.81 Thoracic back pain M54.6 Fall W19.XXXA Trigger finger, right M65.30 Internal derangement of right knee M23.91 Anxiety 10/27/13 F41.9 Essential hypertension 06/17/13 I10 Hiatal hernia 01/07/14 K44.9 Medical History Medical History Actinic keratoses Actinic keratosis (03/11/17) Annual physical exam Arthralgia Bilateral carpal tunnel syndrome (11/03/14) Bronchitis Cervical spondylosis COVID Cyst of ovary (10/27/13) Diverticulosis Diverticulosis of colon without diverticulitis pandiverticulosis 07/25/11 (SIGMOID DIVERTICULOSIS) Dysphagia (12/12/12) Gastroesophageal reflux disease with esophagitis (06/18/13) Globus sensation (06/18/13) w/u [facility] [place] Headache (12/09/12) Heart murmur Pt. states she no longer has murmur Hx of chronic arthritis Hypertension Iliotibial band syndrome affecting left lower leg Steroid injection: 04/20/2021 Knee pain (08/22/04) right; neg x-ray LLQ abdominal pain Numbness of face (12/09/12) Palpitations (12/09/12) Perioral dermatitis Pes anserinus bursitis of left knee Pes anserinus bursitis of right knee Polyp of colon 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; SESSILE SERRATED ADENOMA 01/07/14; [facility] [place]; AWAITING PATH REPORT Skin lesion Skin lesion Smoker Tachycardia (12/21/15) Pt. states she no longer has this Trochanteric bursitis Surgical History Surgical History History of appendectomy Surgery was to remove suspected R ovarian cyst. Mass was actually on the appendix and this was removed - [facility] [place] History of bilateral ligation of fallopian tubes History of eye surgery B/L cross eye correction History of total left hip replacement (01/24/22) Hx of heart surgery possible ablation +/- defect repair-2017 pt. 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/20) Tobacco Smoking/Tobacco Use Status: Former Tobacco Use Passive smoking exposure: Yes Alcohol Alcohol Intake: current Alcohol intake frequency: a few times a week Alcohol type: wine Substance Use Substance use: Never Substance use type: does not use Vital Signs and Lab Results Vital Signs Most Recent Vital Signs in EMR: Temp Pulse Resp BP Pulse Ox 36.8 C 75 18 142/69 H 96 06/19/23 10:10 06/19/23 10:10 06/19/23 10:10 06/19/23 10:10 06/19/23 10:10 Lab Results Blood Type / Crossmatch: No Data to Display Complete Blood Count: No Data to Display Complete Metabolic Panel: No Data to Display Liver Function Panel: No Data to Display Coagulation Panel: No Data to Display Cardiac Panel: No Data to Display Arterial Blood Gas: No Data to Display Venous Blood Gas: No Data to Display Pancreas Panel: No Data to Display Thyroid Panel: No Data to Display Infectious Disease: No Data to Display Blood Cultures: No Data to Display Toxicology Panel: No Data to Display Imaging and Studies Imaging and Studies Study information below may be from another EMR and interpreted by another provider. Please see original notes in EMR for more complete details. Stress Test Summary: 12/03 CONCLUSION: Normal perfusion. Negative ischemia. Normal LV function. Echocardiogram Summary: 12/03: normal BV size and function. 1-2+ MR and TR. Pulmonary Function Summary: 2012: IMPRESSION: Normal spirometry. Anesthesia Assessment and Plan Anesthesia History Personal History: No History of Anesthesia Complications Family History: No Family History of Anesthesia Complications Exercise Tolerance Exercise Tolerance: Metabolic Equivalents>4 Cardiac & Pulmonary Exam Cardiac Exam: Normal S1/S2 Heart Sounds Pulmonary Exam: Clear Bilateral Breath Sounds Implantable Cardiac Device Does patient have a Pacemaker or an ICD?: No Airway Exam Known Difficult Airway: No Mallampati Class: 3 Mouth Opening: Normal (> 3cm) Thyromental Distance: Greater than 3 cm Neck Range of Motion: Full ROM Neck Circumference: Normal Teeth Condition: Normal Dentition ASA Classification ASA Score: ASA 2 Emergency Case?: No NPO Status NPO Status: NPO Clears >2 hours, Solids >8 hours Anesthesia Plan Resuscitation Status: Full Code Anesthesia Technique: General Anesthesia Airway Planned: LMA Monitors Used: Standard Monitors Preoperative Comments:: 72 yo female for knee scope. Sig PMHx: HTN, GERD (denies), back pain, cervical spondylosis. Previous Anes: - colo, prop, natural airway, no issues.
[2023-06-19] MEDS: Lactated Ringers 1,000 ML 80 ML IV (10:40)
[2023-06-19] MEDS: ceFAZolin 2 GM/50 ML BAG IVPB (10:54)
[2023-06-19] MEDS: EPINEPHrine 30 MG/30 ML VIAL (11:34)
[2023-06-19] MEDS: Bupivacaine 0.5% Pres-Free 30 ML VIAL (11:35)
--- NOTE | 2023-06-19 11:53 | W.PM.OP ---
Date of service: 06/19/23 Time of Service: 11:45 Operative Note Operative Note DATE OF PROCEDURE: 06/19/23 PRE-OP DIAGNOSIS: Right Knee Medial Meniscus Tear POST-OP DIAGNOSIS: same PROCEDURE: Right Knee Arthroscopic Partial Medial Menisectomy SURGEON: Carlyle Tolentino ANESTHESIA TYPE: General LMA/ETT Refer to Anesthesia Record ESTIMATED BLOOD LOSS: 0 PATHOLOGY: none sent TOURNIQUET TIME: 0 COMPLICATIONS: None Patient was transported to: PACU Patient's condition: stable Indications: I have seen Helen in clinic for symptoms of a meniscus tear. This was confirmed based on MRI and exam findings. Nonoperative measures were exhausted but disability and pain persisted. I discussed knee arthroscopy with meniscal intervention with the patient. I reviewed the risks of the procedure to include, but not limited to, bleeding, infection, pain, stiffness, damage to nerves or vessels, recurrence, blood clot. Despite these risks, the patient elected to proceed. Findings: A diagnostic arthroscopy was performed with the following findings: Suprapatellar Pouch: Mild inflammatory changes, No loose bodies Medial Compartment: Complex medial meniscal tear, Intact meniscal root, Grade II chondromalacia, No loose bodies Notch: ACL and PCL were intact Lateral Compartment: No meniscal tear, Intact meniscal root, No significant chondromalacia or signs of arthritis, No loose bodies Patellofemoral Compartment: grade I chondromalacia, No apparent patellar maltracking Procedure Description: Helen was greeted in the preoperative holding area where the correct side was identified and marked. The consent was reviewed with the patient and signed. The history and physical was updated. All questions were answered. She was taken back to the operating room. The patient was placed into the supine position on the operating room table. A nonsterile tourniquet was placed high onto the leg but not used. All bony prominences were well padded. Prophylactic antibiotics in the form of Cefazolin were administered. The right leg was then prepped with Chloraprep and draped in a standard fashion with stockinette and extremity drape. A timeout to confirm correct identity, side and site, procedure, allergies, anesthesia, and medical concerns was performed. The leg was placed into a pneumatic leg clarke, [id number]. A standard lateral portal was made at the lateral border of the patella tendon in line with the inferior pole of the patella, soft spot. The skin and deep tissue was incised sharply and the blunt trochar was inserted atraumatically. A diagnostic arthroscopy was performed and the findings are listed above. The suprapatellar pouch had mild inflammatory change. The patellofemoral articulation showed Grade I chondromalacia as well as good tracking. The lateral gutter had no loose bodies and the medial gutter had no loose bodies. The knee was brought into some valgus stress in extension to open the medial compartment. A medial portal was made, localized by a spinal needle. The portal was created with an #11 blade through skin and capsule under direct visualization avoiding any meniscal injury. A probe was then inserted into the medial compartment. The medial compartment was fully inspected. The chondral surface of the tibia showed Grade II chondromalacia and the surface of the femur showed no significant chondromalacia. The medial meniscus had a complex tear with a primary radial component of the posterior horn. There was a completely loose superior leaflet of the posterior meniscus which was displaceable and thus removed. Additionally there were some degenerative changes extending into the root, although the root was still intact. After evaluation, the meniscus was debrided down to a stable base using a series of biters and arthroscopic laurie. It was probed afterwards to confirm that the tear had been removed and the meniscus was stable. The notch was then inspected which showed an intact ACL and an intact PCL. The leg was then brought into a figure of 4 position. The lateral compartment was fully inspected with the arthroscope and a probe. The chondral surface of the lateral femur showed no significant chondromalacia. The chondral surface of the lateral tibia showed no significant chondromalacia. The lateral meniscus had no meniscal tear. The arthroscope was brought back into the suprapatellar pouch and the leg was in full extension. The knee was thoroughly irrigated with the arthroscopic fluid on high flow and pressure. Inflow was stopped and excess fluid was removed. The wounds were closed with 4-0 Nylon. They were dressed with Xeroform, 4x4 gauze, ABD pad, Kerlix and an KORIN wrap. A cryo-cuff was applied. The patient tolerated the procedure well and was returned to the Same Day Surgery area in a stable condition suffering no known complication.
--- NOTE | 2023-06-19 12:17 | W.ANESPOSTOP ---
Postoperative Evaluation Date, Time and Location Date Performed: 06/19/23 Time Performed: 12:17 Patient Location: PACU Vital Signs Most Recent Imported Vital Signs: Most Recent Vital Signs Temp Pulse Resp BP Pulse Ox 36.3 C L 55 L 14 94/32 L 95 06/19/23 12:00 06/19/23 12:00 06/19/23 12:00 06/19/23 12:00 06/19/23 12:00 Pain Score Most Recent Pain Score: Most Recent Pain Score Pain Level 0 06/19/23 12:00 Assessment Mental Status: Awake (Alert & Oriented to Patient Baseline) Airway and Respiratory Function: Patent airway with normal (patient baseline) respiratory exam Cardiovascular Function: Hemodynamically Stable Hydration Status: Adequately Hydrated Nausea & Vomiting: No Nausea or Vomiting Pain: Pain is tolerable per patient Peripheral Nerve Block: Patient did not receive a nerve block
[2023-06-19] MEDS: fentaNYL 100 MCG/2 ML VIAL IVP (12:37)
[2023-06-19] MEDS: Acetaminophen 325 MG TAB 650 MG PO (14:28)
== END 2023-06-19 14:37 | disposition home or self-care (01) ==
PROVIDERS: PCP Family Medicine; Visit Provider Student in an Organized Health Care Education/Training Program
PROC: (CPT 29870; principal; 2023-06-19 13:15)
DX: M23.231 Derangement of other medial meniscus due to old tear or injury, right knee (principal); I10 Essential (primary) hypertension; F41.9 Anxiety disorder, unspecified; M94.261 Chondromalacia, right knee
CPT/HCPCS: 29881; J0690; J1100; J1885; J2001; J2405; J3010; J3475

== ENCOUNTER 2024-01-15 14:19 | Outpatient (REF) | payer BC, SELFPAY ==
[2024-01-15 15:03] LABS: Bilirubin Negative (Negative); Blood Trace-lysed (Negative); Clarity Cloudy (Clear); Glucose Negative (Negative); Ketones Negative (Negative); Leukocyte Esterase Trace (Negative); Nitrite Negative (Negative); Specific Gravity 1.025 (1.005-1.025); Urobilinogen 0.2 mg/dL (Up to 0.2); pH 5.5 (5-8)
[2024-01-15 15:43] LABS: WBC 0-2 HPF (0-5)
[2024-01-15 15:44] LABS: Bacteria Many HPF (Negative); C & S Indicated? C&S Done As Ordered; Casts Negative LPF (Negative); Crystals Negative HPF (Negative); Epithelial Cells Negative HPF (Negative); Mucus Negative (Negative); Other Cells Rare Transitional (Negative); RBC Negative HPF (0-2)
== END 2024-01-15 14:20 | disposition home or self-care (01) ==
LOC: LBN 14:19
PROVIDERS: PCP Nurse Practitioner Family; Visit Provider Nurse Practitioner Family
DX: R10.30 Lower abdominal pain, unspecified (principal)
CPT/HCPCS: 81003; 81015; 87086

== ENCOUNTER → 2024-02-21 00:21 | Outpatient (CLI) | payer BC, SELFPAY ==
--- NOTE | 2024-02-21 06:45 | DI.CT_ITS ---
Exam(s) CT ABDOMEN PELVIS W EXAM: CT ABDOMEN PELVIS W CLINICAL HISTORY: lower abd pain for 5-8 weeks now, R10.30. TECHNIQUE: Imaging Protocol: Axial computed tomography images with coronal and sagittal reformatted images were created and reviewed CONTRAST MATERIAL: Intravenous: Omnipaque 350 Contrast volume:100 ml Oral: yes COMPARISON: No exams were available for comparison FINDINGS: ABDOMEN and PELVIS: Lung Bases: No acute findings. Liver: Normal density. No suspicious mass. Gallbladder and biliary tract: No radiodense calculus. No biliary dilation. Pancreas: Normal density. No abnormal calcifications or inflammatory process. No evidence of mass. Spleen: Normal. Kidneys: Normal size, contour and axis. No radiodense stones. No obstructive uropathy. No suspicious masses seen. Adrenal glands: No masses seen. Vasculature: Abdominal aorta non-dilated. Soft tissues: Unremarkable. Bladder: Mostly obscured by artifact from bilateral hip prostheses. Bowel: No obstruction. Surgical clips base of cecum. Diverticulosis descending and sigmoid colon. Mild uncomplicated diverticulitis in mid sigmoid. Peritoneal cavity: No ascites. No focal collection. No free air. Bones: Bilateral hip prostheses create artifact in the pelvis. Reproductive organs: Calcified uterine fibroid. Lymph nodes: No pathologically enlarged lymph nodes. IMPRESSION:: Mild uncomplicated sigmoid diverticulitis. RADIATION DOSE DELIVERED: 854.35mGy.cm Total DLP DATA REPOSITORY: All CT scans at this facility are submitted to the National Radiology Data Registry (NRDR) Dose Index Registry (DIR) with the [employer] (ACR). RADIATION OPTIMIZATION: All CT scans at this facility use at least one of these dose optimization te chniques: automated exposure control; mA and/or kV adjustment per patient size (includes targeted exa ms where dose is matched to clinical indication); or iterative reconstruction.
[2024-02-21] MEDS: Barium Sulfate 2% W/V-Berry Smoothie 450 ML BTL PO (08:04)
[2024-02-21] MEDS: Barium Sulfate 2% W/V-Creamy Vanilla Smoothie 450 ML BTL PO (08:05)
[2024-02-21 08:32] LABS: CREATININE 1.1 mg/dL (0.55-1.02); Estimated GFR 53.06 (mL/min/1.73m2)
[2024-02-21] MEDS: Omnipaque 350 MG/ML 100 ML BTL IJ (10:24)
[2024-02-21] MEDS: Normal Saline - Diluent 50 ML VIAL IJ (10:25)
== END ==
PROVIDERS: PCP Nurse Practitioner Family; Visit Provider Nurse Practitioner Family
DX: R10.30 Lower abdominal pain, unspecified (principal)
CPT/HCPCS: 74177; 82565; J3490

== ENCOUNTER 2024-06-23 11:17 | Outpatient (CLI) | payer BC, SELFPAY ==
--- NOTE | 2024-06-23 09:30 | DI.RAD_ITS ---
Exam(s) XR SHOULDER RT COMPLETE 2+V EXAM: XR SHOULDER RT COMPLETE 2+V CLINICAL HISTORY: RIGHT SHOULDER PAIN. TECHNIQUE: 2D digital imaging was performed of the right shoulder. Two images were obtained. Grash ey and axillary views were obtained. COMPARISON: No exams were available for comparison FINDINGS: BONES: No acute fracture is present. No bony destructive lesion is seen. JOINTS: No dislocation present. There are mild degenerative changes seen at both the glenohumeral and acromioclavicular joints. SOFT TISSUE: Normal. IMPRESSION: Mild degenerative changes of the right shoulder. DATA REPOSITORY: RADIATION DOSE DELIVERED:
== END 2024-06-23 11:18 | disposition home or self-care (01) ==
LOC: DIORS 11:17
PROVIDERS: PCP Nurse Practitioner Family; Visit Provider Student in an Organized Health Care Education/Training Program
DX: M25.511 Pain in right shoulder (principal)
CPT/HCPCS: 73030

== ENCOUNTER 2024-07-09 01:02 | Outpatient (CLI) | payer BC, SELFPAY ==
--- NOTE | 2024-07-09 15:42 | DI.RAD_ITS ---
Exam(s) RF JOINT INJ. FLUORO GUID RAD EXAM: RF JOINT INJ. FLUORO GUID RAD CLINICAL HISTORY: R SHOULDER PAIN,m25.511. The Patient has had persistent right shoulder pain. Non invasive measures have been tried. To serve as both diagnostic and therapeutic, an injection under f luoroscopy was recommended. The risks of the procedure were discussed with their Orthopedic provider and the patient elected to proceed. TECHNIQUE: 2D and realtime digital imaging was performed. CONTRAST MATERIAL: Water soluble contrast was utilized. COMPARISON: No exams were available for comparison FINDINGS: The Patient was greeted in the fluoroscopy room. The correct side was identified and the consent was reviewed with the patient and was signed. The patient was properly positioned on the fluoroscopy ta ble. The right shoulderwas then prepped with Chloraprep and draped. The right shoulder injection st arting point was identified by the bony landmarks and fluoroscopy. The skin and soft tissue in the t ract of the injection was anesthetized with 1% Lidocaine. A spinal needle was then inserted into the right shoulder joint at the level of the glenohumeral joint under fluoroscopic guidance. A small am ount of Omnipaque solution was injected to confirm intraarticular placement. Once confirmed, the rig ht shoulder was injected with 5cc of a solution containing 0.5% Bupivaine and 80 mg of Depo-Medrol. A bandaid was placed on the injection site. The patient tolerated the procedure well and left the de partment in good condition. IMPRESSION: Successful right shoulder injection. RADIATION DOSE DELIVERED: Ka,r=1.62 mGy
[2024-07-09] MEDS: Bupivacaine 0.5% Pres-Free 10 ML VIAL IJ (15:49)
[2024-07-09] MEDS: methylPREDNISolone ACETATE 80 MG/ML VIAL IM (15:50)
[2024-07-09] MEDS: Omnipaque 300 MG/ML 10 ML BTL IJ (15:51)
== END 2024-07-09 01:22 ==
LOC: DI 01:02
PROVIDERS: PCP Nurse Practitioner Family; Visit Provider Student in an Organized Health Care Education/Training Program
DX: M25.511 Pain in right shoulder (principal)
CPT/HCPCS: 20610; 77002; J0665; J1010

== ENCOUNTER 2024-08-04 04:35 | Outpatient (CLI) | payer BC, SELFPAY ==
[2024-08-04 12:22] LABS: HCT 38.6 % (36.0-46.0); HGB 13.1 g/dL (11.2-15.7); MCH 31.8 pg (27.0-33.0); MCHC 33.9 % (32.0-36.0); MCV 94 fL (80-95); MPV 9.8 fL (8.0-11.0); Platelet Count 173 10^3/uL (130-400); RBC 4.12 10^6/uL (3.93-5.22); RDW 12.6 % (11.7-14.6); RDW-SD 43.4 fL; WBC 3.55 10^3/uL (4.4-10.8)
[2024-08-04 12:55] LABS: ALT 40 U/L (14-59); AST 25 U/L (15-37); Albumin 3.6 g/dL (3.4-5.0); Alkaline Phosphatase 84 U/L (46-116); Anion Gap 9.2 mmol/L (3-11); BUN 14 mg/dL (7-18); Bilirubin, Total 0.62 mg/dL (0.2-1.0); CO2 26.8 mmol/L (21.0-32.0); Calcium 9.1 mg/dL (8.5-10.1); Calculated LDL 153 mg/dL (<100); Chloride 108 mmol/L (98-107); Cholesterol 254 mg/dL (<200); Estimated GFR 59.49 (mL/min/1.73m2); Glucose 104 mg/dL (74-106); HDL Cholesterol 81 mg/dL (40-60); Potassium 4.3 mmol/L (3.5-5.1); Sodium 144 mmol/L (136-145); TSH (W/Ref FT4) 0.95 uIU/mL (0.36-3.74); Total Protein 7.9 g/dL (6.4-8.2); Triglyceride 103 mg/dL (<150)
[2024-08-04 12:56] LABS: Hemoglobin A1C 5.2 % (<5.7)
== END 2024-08-04 04:36 | disposition home or self-care (01) ==
LOC: LOS 04:35
PROVIDERS: PCP Nurse Practitioner Family; Visit Provider Nurse Practitioner Family
DX: Z00.00 Encounter for general adult medical examination without abnormal findings (principal); F41.9 Anxiety disorder, unspecified; I10 Essential (primary) hypertension; E78.5 Hyperlipidemia, unspecified
CPT/HCPCS: 36415; 80053; 80061; 85027; 83036; 84443

== ENCOUNTER 2024-08-05 00:54 | Outpatient (CLI) | payer BC, SELFPAY ==
--- NOTE | 2024-08-05 08:00 | DI.US_ITS ---
APPROVED REPORT EXAM: Comprehensive 2D, Doppler, and color-flow Echocardiogram Patient Location: Out-Patient Hand Alterations Seamstress: Adelaida Hall RDCS (AE) Indications: Heart murmur, tachycardia Conclusion Normal left ventricular wall thickness and chamber size. Ejection fraction is 60%. Wall motion is n ormal Normal right ventricular size and function Both atria are normal in size There are no structural valvular abnormalities Mild mitral regurgitation Estimated right ventricular systolic pressure is 29 mmHg Wall motion Left Ventricle The left ventricle is normal size. The left ventricular systolic function is normal. The left ventric ular ejection fraction is within the normal range. There is normal left ventricular wall thickness. T here is normal LV segmental wall motion. There is no ventricular septal defect visualized. LVEF is 60 %. Right Ventricle The right ventricle is normal size. The right ventricular systolic function is normal. Atria The left atrium size is normal. The right atrium size is normal. The interatrial septum is intact wit h no evidence for an atrial septal defect. Aortic Valve The aortic valve is normal in structure. Aortic valve is trileaflet. There is no aortic valvular sten osis. No aortic regurgitation is present. Mitral Valve The mitral valve is normal in structure. No evidence of mitral valve stenosis. Mild mitral regurgitat ion. Tricuspid Valve The tricuspid valve is normal in structure. There is no tricuspid valve stenosis. Trace tricuspid reg urgitation. The RVSP is 29.2 mmHg. Pulmonic Valve The pulmonary valve is normal in structure. There is no pulmonic valvular stenosis. Trace pulmonic re gurgitation. Great Vessels The aortic root is normal in size. The ascending aorta is normal in size. Aortic arch is normal in ca liber. IVC is normal in size and collapses >50% with inspiration. Pericardium There is no pericardial effusion. 2D Dimensions IVSD d PLAX 0.75 cm F: 0.6-1.0 Ao Root d 2.48 cm F: 2.7 - 3.3 LVPW d PLAX 0.78 cm F: 0.6 - 1.0 Ao Asc Diam d 2.91 cm F: 2.3 - 3.1 LVID d PLAX 4.48 cm F: 3.8 - 5.2 LVDs 3.19 cm F: 2.2 - 3.5 LV EF Teichholz 55.5 % FS 28.78 % LV EDV (Teich) 91.4 mL LV ESV (Teich) 40.6 mL Stroke Vol Index (Teich) 29.16 M-Mode TAPSE 2.17 cm (M/F) >1.7 Auto EF LV EDV A4C 64.1 mL LV EDV A2C 80.5 mL LV EDV BP 71.5 mL LV ESV A4C 28.4 mL LV ESV A2C 34.0 mL LV ESV BP 31.3 mL LVEF(%) A4C 55.7 % LVEF(%) A2C 57.8 % LVEF(%) BP 56.2 % LV SV A4C 35.7 ml LV SV A2C 46.5 ml LV SV BP 40.2 ml LV CO A4C 2.2 L/min LV CO A2C 2.7 L/min LV CO BP 2.5 L/min HR A4C 61.73 BPM HR A2C 58.92 BPM LV EDV Index (BP) LA Volume LA Length A4C 5.0 cm LA Length A2C 5.1 cm LA Area A4C s 12.93 cm2 LA Area A2C s 18.74 cm2 LA Vol A4C A-L 28.21 mL LA Vol A2C A-L 58.14 mL LA Vol Biplane A-L 40.9 mL LA Vol/BSA A4C A-L LA Vol/BSA A2C A-L LA Vol/BSA BP A-L 23.5 mL/m2 LA Vol A4C MOD 26.7 mL LA Vol A2C MOD 52.3 mL LA Vol BP MOD 37.5 mL RA Volume RA Area A4C 8.4 cm2 RA ESV A4C (A-L) 13.4mL RA Vol/BSA A4C A-L RA Length A4C 4.5 cm RA ESV A4C (MOD) 12.9mL LV Diastology MV E' medial 0.073 (>0.07 m/s) MV E Vmax 1.00 (0.4-1.3 m/s) MV E/E' MED 13.71 (<14) MV A Vmax 0.90 (0.4-1.3 m/s) MV E' lateral 0.099 (>0.1 m/s) E/A Ratio 1.1 MV E/E' LAT 10.15 (<14) MV E' Average 0.086 m/s MV E/E'(average) 11.67 Aortic Valve AoV Vmax 1.52 m/s LVOT Vmax 1.15 m/s AoV Peak Grad 9.3 mmHg LVOT Peak Grad 5.2 mmHg AoV Area (Vmax) 2.17 cm2 LVOT VTI 0.274 m AoV VTI 0.367 m LVOT Mean Grad 2.7 mmHg AoV Mean Robi. 1.02 m/s LVOT SV 79.24 mL AoV Mean Grad 4.8 mmHg LVOT Diam s 1.90 cm AoV Area (VTI) 2.16 cm2 AV Regurg Peak Gr. 9.25 mmHg Velocity Ratio 0.76 Mitral Valve MV DT 198 (160-240 msec) MV Vmax TIPS 0.89 m/s MV Mean Grad 1.2 (<2mmHg) MV VTI 0.304 m Pulmonary Valve PV Vmax 0.77 (0.5-1.5 m/s) RVOT Vmax 0.75 m/s PV Peak Grad 2.4 mmHg RVOT Peak Gr. 2.3 mmHg PV Mean Robi 0.61 m/s RVOT VTI 0.203 m PV Mean Grad 1.6 mmHg RVOT Mean Gr. 1.3 mmHg Tricuspid Valve RA Pressure 3.00 mmHg TR Vmax 2.56 m/s TV S' 0.13 m/s TR Peak Grad 26.2 mmHg RVSP (TR) 29.2 mmHg
== END 2024-08-05 01:14 ==
LOC: DI 00:55
PROVIDERS: PCP Nurse Practitioner Family; Visit Provider Nurse Practitioner Family
DX: R01.1 Cardiac murmur, unspecified (principal); R00.0 Tachycardia, unspecified
CPT/HCPCS: 93306

== ENCOUNTER 2024-08-06 14:58 | Outpatient (RCR) | payer BC, SELFPAY ==
--- NOTE | 2024-08-13 14:53 | W.HOLTRPT ---
Date of service: 08/13/24 Time of Service: 14:53 Holter Monitor Report Referring Provider:: Karin Willis Indications:: Palpitations Holter Monitor Note: This is a Holter monitor. Predominant rhythm was sinus with an average heart rate of 72. Minimum was 57, maximum 106 There were very rare isolated ventricular ectopic beats There were no significant atrial premature beats. A total of 3 self-limited atrial runs occurred. These were asymptomatic There was no atrial fibrillation, no high-grade AV block, no pauses greater than 3 seconds No patient symptoms were reported
== END 2024-08-22 23:59 | disposition home or self-care (01) ==
LOC: CARDOPNVT 14:58
PROVIDERS: PCP Nurse Practitioner Family; Visit Provider Internal Medicine Cardiovascular Disease
DX: R00.0 Tachycardia, unspecified (principal)
CPT/HCPCS: 93225; 93226

== ENCOUNTER 2024-08-17 06:13 | Day surgery (SDC) | payer BC, SELFPAY ==
--- NOTE | 2024-08-16 16:22 | PDOC.DSDIS_ITS ---
Date of service: 08/17/24 Discharge Plan Disposition Patient Disposition: Home Condition: Good Discharge Details Reason For Visit: screening colonoscopy Attending Provider: Alexsander Brannon Primary Care Provider: Karin Willis Home Meds and New Rx's Prescriptions: Continued clotrimazole-betamethasone [Lotrisone] 1-0.05 % cream 1 applic Topical BID PRN (Reason: rash) Qty: 45 1RF hydrochlorothiazide 12.5 mg tablet 12.5 mg PO DAILY Qty: 90 12RF losartan 100 mg tablet 100 mg PO DAILY Qty: 90 12RF metoprolol succinate 25 mg tablet extended release 24 hr 12.5 mg PO DAILY Qty: 45 4RF paroxetine HCl 20 mg tablet 20 mg PO DAILY Qty: 90 5RF acetaminophen 500 mg tablet 1,000 mg PO TID Qty: 90 0RF ibuprofen 600 mg tablet 600 mg PO TID PRN (Reason: pain) Qty: 90 0RF Daily Multivitamin-Minerals Tablet 1 tab PO DAILY Discontinued polyethylene glycol 3350 17 gram/dose powder 238 g PO ONCE Qty: 238 0RF Rx Instructions: take per colonoscopy instructions bisacodyl [Dulcolax (bisacodyl)] 5 mg tablet,delayed release (DR/EC) 5 mg PO ONCE Qty: 4 0RF Rx Instructions: take per colonoscopy instructions Discharge Instructions Instructions: Diverticulosis Additional Instructions: Lil, it was very nice seeing you again today. And I hope you are comfortable during the procedure. Your prep was outstanding, and I could see everything fine. I saw no evidence of any tumors or polyps today. You do have some diverticulosis. These are small weak spots in the muscular part of the colon wall. This causes the inside lining to pooch outward slightly in some areas. These can get infected or inflamed during episodes that we refer to as diverticulitis. When that happens, patients are usually quite sick, and have significant amount of pain that usually on the left side of their abdomen. Often times, that is treated with antibiotics. Hopefully, years do not bother you. Have attached a little bit of information here about diverticular disease, and basic approaches to the management of it. Because of the type of polyp that you had removed previously, I recommend a 5-year interval for your next colono scopy. If you need anything, or have any questions at all, please do not hesitate to ask. 1. If tolerated, consume a soft, low fiber diet for 1-2 days. 2[address] Do not drive, drink alcohol, operate machinery, make critical decisions, or do activities that require coordination or balance for 24 hours. 3. Because air was put into your colon during the procedure, expelling air from your rectum (passing gas or farting) is normal. 4. You may not have a bowel movement for 1-3 days because of the colonoscopy prep. This is normal. 5. Go directly to the emergency room if you notice any of the following: Develop chills (warm to touch), or if you have a thermometer and your temperature is above 101 Difficulty breathing or difficultly swallowing Persistent vomiting Severe abdominal pain, other than gas cramps Severe chest pain Black, tarry stools Any bleeding ? exceeding one tablespoon 6. Call your physician if the site where your intravenous was started becomes red, swollen, painful, and warm to touch. 7. Your physician has reviewed your pre-procedure medications. Please continue to take those medications as previously ordered. You will be given specific information/education regarding any changes to your medications before leaving. Activity:: Activity as Tolerated Diet:: As Tolerated Discharge Orders Discharge Orders: Discharge Order (Routine); Ordered 08/16/24 Ordered By: Alexsander Brannon DS: Diagnosis Discharge Diagnosis (1) Encounter for screening colonoscopy: Status: Acute Asessment and Plan: Diverticulosis; otherwise negative screening colonoscopy today. Based on previous sessile serrated adenoma, recommend 5-year interval for the next colonoscopy
--- NOTE | 2024-08-16 16:23 | COLE_ITS ---
Date of service: 08/17/24 Time of Service: 07:54 Colonoscopy Report Date of procedure: 08/17/24 Pre-op diagnosis general: screening colonoscopy Post-op diagnosis procedure note: other (Diverticulosis; otherwise negative screening colonoscopy) Procedure: colonoscopy Surgeon: Alexsander Brannon Anesthesia Type: General:No Airway Estimated blood loss (mL): 0 Pathology: none sent Complications: None Disposition: same day Indications: Marvin is a 73 year old woman who needs her next screening colonsocopy for routine health maintenance. Prep: Miralax/Dulcolax Procedure Start Time: 07:32 Procedure End Time: 07:47 Retraction Time: 7 Findings: Pandiverticulosis Procedure Description: After the induction of anesthesia, and with the patient in left lateral decubitus position, I began by performing an external anorectal exam.? Perineum and skin were normal, as was the anal verge.? There was no evidence of external hemorrhoids.? Next, I performed a digital rectal exam.? I did not appreciate any abnormal findings.? Next, I advanced a colonoscope into the rectal vault.? I performed retroflexion.? This appeared normal.? Using insufflation, I then advanced the colonoscope beyond the rectal folds and into the sigmoid colon before advancing towards the cecum. There is diverticulosis that begins in the sigmoid colon. It is most heavily concentrated here, although it does extend into all segments of the colon..? The scope was noted to be in the cecum by identification of the ileocecal valve and appendiceal orifice.? I then began withdrawing the colonoscope using repeated irrigation as necessary for full evaluation of the colonic mucosa. ?Once the scope was withdrawn to the level of the rectum, great care was taken to examine portions of the rectal folds.? I saw no evidence of any tumors or polyps. Finally, the scope was withdrawn and the patient was brought to the same-day surgery recovery unit as the anesthetic wore off. ?The findings and instructions were shared with the patient prior to discharge. Kilgore Bowel Prep Kilgore Bowel Prep Right Colon: 3 Left Colon: 3 Transverse Colon: 3 Total Score: 9
--- NOTE | 2024-08-16 16:25 | W.PREOPHP ---
Assessment and Plan Assessment and plan (1) Encounter for screening colonoscopy: Status: Acute Assessment and plan: We reviewed the plan for a screening colonoscopy again today and Lil had the chance to ask any other questions. We can proceed as planned. History of Present Illness History of Present Illness Chief Complaint: screening colonoscopy Narrative: Marvin is 73 years old, and she is due for her next screening colonoscopy. Past colonoscopies were positive for adenomatous polyps, specifically sessile serrated adenomas. She is tolerated colonoscopy well in the past, with no significant complications. She denies any known family history of colon or rectal cancers. Incidentally, she does carry diagnosis of irritable bowel syndrome. She tells me that mostly egg based products result in quick onset diarrhea. That usually 1 or 2 episodes then resolves. She has never been medicated for this. Past surgical history includes laparoscopic appendectomy and tubal ligation. Since our last encounter together, there have been no major changes to the interval history. PFSH All Active Problems Encounter for screening colonoscopy (Acute) Trigger finger, left middle finger (Acute) Arthritis of right glenohumeral joint (Acute) TMJ (temporomandibular joint disorder) (Acute) right sided Lower Abdominal Pain (Acute) Complex tear of medial meniscus of right knee (Acute) S/P Arthroscopy: 06/19/2023 Trigger finger, right middle finger (Acute) s/p trigger release DOS: 05/17/23 Rib pain on right side (Acute) Thoracic back pain (Acute) Fall (Acute) Internal derangement of right knee (Acute) Anxiety (Chronic 10/27/13) on medication Essential hypertension (Chronic 06/17/13) Hiatal hernia (Chronic 01/07/14) 01/07/14;[facility] [place]; EGD; 1CM HIATUS HERNIA Medical History COVID Pes anserinus bursitis of left knee Pes anserinus bursitis of right knee Skin lesion LLQ abdominal pain Arthralgia Iliotibial band syndrome affecting left lower leg Steroid injection: 04/20/2021 Actinic keratoses Annual physical exam Skin lesion Perioral dermatitis Diverticulosis Trochanteric bursitis Hx of chronic arthritis Bronchitis Bilateral carpal tunnel syndrome (11/03/14) Cyst of ovary (10/27/13) Dysphagia (12/12/12) Palpitations (12/09/12) Smoker Tachycardia (12/21/15) Pt. states she no longer has this Polyp of colon 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; SESSILE SERRATED ADENOMA 01/07/14; [facility] [place]; AWAITING PATH REPORT Numbness of face (12/09/12) Knee pain (08/22/04) right; neg x-ray Heart murmur Pt. 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 states she does not have to f/u with cardiology History of appendectomy Surgery was to remove suspected R ovarian cyst. Mass was actually on the appendix and this was removed - [facility] [place] History of bilateral ligation of fallopian tubes History of eye surgery B/L cross eye correction Family History Mother , AGE 67 Throat cancer Alcohol abuse Depression Hypertension FAMILY HISTORY TB (tuberculosis) Father , AGE 27 No problems noted. Sister Hypertension Brother Diabetes Heart disease Hypertension Stroke Son Hypertension Social History Smoking/Tobacco Use Status: Former Tobacco Use tobacco type: cigarettes Quit Date: 09/23/98 Tobacco: How many years used: 40 Second Hand Exposure: Yes Smoking risk assessment performed?: Yes Alcohol Intake: current Alcohol Intake frequency: 3 or more drinks per day Alcohol type: wine Drug use: Never Substance use type: does not use Caregiver/Support person: No Household members: significant other Housing: house Communication Needs: None Do you need help understanding health information?: Never current occupation: [employer] Pets and animals: Yes Pets and animals: cat(s) Sexually active: No Do you think of yourself as: straight/heterosexual Current gender identity: female What is your relationship status?: living with partner How often do you talk on the phone with friends or family?: three or more times per week How often do you get together with friends or relatives?: twice per week Do you belong to any clubs or organized social groups?: no Panel score (0-1 are the most socially isolated patients): 2 What type of physical activity do you participate in: walking and yoga Frequency: 1-2 times per week Stella/Sabianist: Non bahai Special stella needs: No Seatbelt use: always Helmet use: Yes Helmet use: always Drive intox or ride w/intox local company intermodal truck driver: No Do you feel safe at home: Yes Do you feel safe in your relationship?: Yes Victim of physical abuse: No Victim of emotional abuse: No Victim of sexual abuse: No Would you like helpful sources: No Meds Allergies and Home Medications Allergies Allergy/AdvReac Type Severity Reaction Status Date / Time lisinopril Allergy Intermediate I cant Verified 08/17/24 06:19 remember it was quite awhile ago amlodipine AdvReac Unknown edema Verified 08/17/24 06:19 diltiazem AdvReac Nausea and Verified 08/17/24 06:19 headaches Home Medications ?Medication ?Instructions ?Recorded ?Confirmed ?Type multivitamin with minerals (Daily 1 tab PO DAILY 07/14/19 08/13/24 History Multivitamin-Minerals tablet) clotrimazole-betamethasone 1 1 applic topical BID PRN rash #45 08/27/19 08/13/24 Rx %-0.05 % topical cream (Lotrisone) grams acetaminophen 500 mg tablet 1,000 mg (2 x 500 mg) PO TID #90 06/19/23 08/13/24 Rx tabs ibuprofen 600 mg tablet 600 mg PO TID PRN pain #90 tabs 06/19/23 08/13/24 Rx hydrochlorothiazide 12.5 mg tablet 12.5 mg PO DAILY #90 tab-caps 04/19/24 08/17/24 Rx losartan 100 mg tablet 100 mg PO DAILY #90 tab-caps 04/19/24 08/17/24 Rx metoprolol succinate 25 mg 12.5 mg (1/2 x 25 mg) PO DAILY #45 04/19/24 08/17/24 Rx tablet,extended release 24 hr tabs paroxetine HCl 20 mg tablet 20 mg PO DAILY #90 tab-caps 04/19/24 08/17/24 Rx Exam Const General: cooperative, healthy appearing and not in acute distress Neck Neck: normal visual inspection, no lymphadenopathy and supple Resp Effort & Inspection: normal respiratory effort Auscultation: clear to auscultation bilaterally Cardio Jugular venous pressure: no JVD Rate: regular rate Rhythm: regular rhythm Heart Sounds: S1 normal and S2 normal GI Inspection: normal to inspection Palpation: soft, no guarding, no hernias and nontender Percussion: normal to percussion Auscultation: normal bowel sounds Neuro General: patient alert, patient awake and patient oriented x3 Psych Appearance: grossly normal
[2024-08-17 06:29] VITALS: BP 136/73; PULSE 73; RESP 18; TEMP 36.4; O2SAT 98
[2024-08-17] MEDS: Normal Saline Flush 10 ML SYR IV (06:39)
--- NOTE | 2024-08-17 07:12 | ANES.PREOP_ITS ---
General Info Date of Service Date Performed: 08/17/24 Height: 5 ft 3.5 in Weight: 70.2 kg Body Mass Index (BMI): 26.9 Surgical Procedure: Operation Date: 08/17/24 07:35 Proposed Procedure Side Surgeon yahaira Brannon MD Meds Allergies and Home Medications Allergies Allergy/AdvReac Type Severity Reaction Status Date / Time lisinopril Allergy Intermediate I cant Verified 08/17/24 06:19 remember it was quite awhile ago amlodipine AdvReac Unknown edema Verified 08/17/24 06:19 diltiazem AdvReac Nausea and Verified 08/17/24 06:19 headaches Home Medication ?Medication ?Instructions ?Recorded multivitamin with minerals (Daily 1 tab PO DAILY 07/14/19 Multivitamin-Minerals tablet) clotrimazole-betamethasone 1 1 applic topical BID PRN rash #45 08/27/19 %-0.05 % topical cream (Lotrisone) grams acetaminophen 500 mg tablet 1,000 mg (2 x 500 mg) PO TID #90 06/19/23 tabs ibuprofen 600 mg tablet 600 mg PO TID PRN pain #90 tabs 06/19/23 hydrochlorothiazide 12.5 mg tablet 12.5 mg PO DAILY #90 tab-caps 04/19/24 losartan 100 mg tablet 100 mg PO DAILY #90 tab-caps 04/19/24 metoprolol succinate 25 mg 12.5 mg (1/2 x 25 mg) PO DAILY #45 04/19/24 tablet,extended release 24 hr tabs paroxetine HCl 20 mg tablet 20 mg PO DAILY #90 tab-caps 04/19/24 Current Visit Medications: Current Medications Generic Name Dose Route Start Last Admin Trade Name Freq PRN Reason Stop Dose Admin Ringer's Solution 1,000 mls @ 80 mls/hr 08/17/24 06:00 IV 08/17/24 23:59 [facility] IV Miscellaneous Supplies 1 each 08/17/24 06:00 Iv Access IV 08/17/24 23:59 [facility] Ondansetron HCl 4 mg 08/16/24 16:24 Ondansetron 4 Mg/2 Ml Vial IVP 09/15/24 16:23 Q4H PRN PRN Nausea / Vomiting Sodium Chloride 0 ml 08/17/24 06:00 08/17/24 06:39 Normal Saline Flush 10 Ml Syr IV 08/17/24 23:59 10 ml PRN PRN Administration Sodium Chloride 0 ml 08/17/24 06:00 Normal Saline 10 Ml Vial IJ 08/17/24 23:59 DIRECTED PRN Sterile Water 0 ml 08/17/24 06:00 Water,Injection,Sterile 10 Ml Vial IJ 08/17/24 23:59 DIRECTED PRN PFSH Active Problems Active Problems: Problem Status Onset Code Encounter for screening colonoscopy Acute Z12.11 Trigger finger, left middle finger Acute M65.332 Arthritis of right glenohumeral joint Acute M19.011 TMJ (temporomandibular joint disorder) Acute M26.609 Lower Abdominal Pain Acute R10.30 Complex tear of medial meniscus of right knee Acute S83.231A Trigger finger, right middle finger Acute M65.331 Rib pain on right side Acute R07.81 Thoracic back pain Acute M54.6 Fall Acute W19.XXXA Internal derangement of right knee Acute M23.91 Anxiety Chronic 10/27/13 F41.9 Essential hypertension Chronic 06/17/13 I10 Hiatal hernia Chronic 01/07/14 K44.9 Medical History Medical History COVID Pes anserinus bursitis of left knee Pes anserinus bursitis of right knee Skin lesion LLQ abdominal pain Arthralgia Iliotibial band syndrome affecting left lower leg Steroid injection: 04/20/2021 Actinic keratoses Annual physical exam Skin lesion Perioral dermatitis Diverticulosis Trochanteric bursitis Hx of chronic arthritis Bronchitis Bilateral carpal tunnel syndrome (11/03/14) Cyst of ovary (10/27/13) Dysphagia (12/12/12) Palpitations (12/09/12) Smoker Tachycardia (12/21/15) Pt. states she no longer has this Polyp of colon 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; SESSILE SERRATED ADENOMA [place]07/14[place] [facility] [place] Numbness of face (12/09/12) Knee pain (08/22/04) right; neg x-ray Heart murmur Pt. 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 states she does not have to f/u with cardiology History of appendectomy Surgery was to remove suspected R ovarian cyst. Mass was actually on the appendix and this was removed [place] [facility] [place] of bilateral ligation of fallopian tubes History of eye surgery B/L cross eye correction Tobacco Smoking/Tobacco Use Status: Former Tobacco Use Passive smoking exposure: Yes Second hand exposure: Yes Alcohol Alcohol Intake: current Alcohol intake frequency: 3 or more drinks per day Alcohol type: wine Substance Use Substance use: Never Substance use type: does not use Vital Signs and Lab Results Vital Signs Most Recent Vital Signs in EMR: Most Recent Vital Signs Temp Pulse Resp BP Pulse Ox 36.4 C L 73 18 136/73 98 08/17/24 06:29 08/17/24 06:29 08/17/24 06:29 08/17/24 06:29 08/17/24 06:29 Lab Results Blood Type / Crossmatch: No Data to Display Complete Blood Count: White Blood Count 3.55 10^3/uL (4.4-10.8) L 08/04/24 10:43 Red Blood Count 4.12 10^6/uL (3.93-5.22) 08/04/24 10:43 Hemoglobin 13.1 g/dL (11.2-15.7) 08/04/24 10:43 Hematocrit 38.6 % (36.0-46.0) 08/04/24 10:43 Platelet Count 173 10^3/uL (130-400) 08/04/24 10:43 Complete Metabolic Panel: Sodium 144 mmol/L (136-145) 08/04/24 10:43 Potassium 4.3 mmol/L (3.5-5.1) 08/04/24 10:43 Chloride 108 mmol/L (98-107) H 08/04/24 10:43 Carbon Dioxide 26.8 mmol/L (21.0-32.0) 08/04/24 10:43 BUN 14 mg/dL (7-18) 08/04/24 10:43 Creatinine 1.0 mg/dL (0.55-1.02) 08/04/24 10:43 Est GFR (CKD-EPI 2020) 59.49 (mL/min/1.73m2) 08/04/24 10:43 Calcium 9.1 mg/dL (8.5-10.1) 08/04/24 10:43 Albumin 3.6 g/dL (3.4-5.0) 08/04/24 10:43 Glucose 104 mg/dL (74-106) 08/04/24 10:43 Hemoglobin A1c 5.2 % (<5.7) 08/04/24 10:43 Liver Function Panel: Alanine Aminotransferase (ALT/SGPT) 40 U/L (14-59) 08/04/24 10: 43 Aspartate Amino Transf (AST/SGOT) 25 U/L (15-37) 08/04/24 10:43 Coagulation Panel: No Data to Display Cardiac Panel: No Data to Display Arterial Blood Gas: No Data to Display Venous Blood Gas: No Data to Display Pancreas Panel: 2 No Data to Display Thyroid Panel: Thyroid Stimulating Hormone (TSH) 0.95 uIU/mL (0.36-3.74) 08/04 10:43 Infectious Disease: No Data to Display Blood Cultures: No Data to Display Toxicology Panel: No Data to Display Imaging and Studies Imaging and Studies Study information below may be from another EMR and interpreted by another provider. Please see original notes in EMR for more complete details. Stress Test Summary: 12/03 CONCLUSION: Normal perfusion. Negative ischemia. Normal LV function. Echocardiogram Summary: 12/03: normal BV size and function. 1-2+ MR and TR. Pulmonary Function Summary: 2012: IMPRESSION: Normal spirometry. Anesthesia Assessment and Plan Anesthesia History Personal History: No History of Anesthesia Complications Family History: No Family History of Anesthesia Complications Exercise Tolerance Exercise Tolerance: Metabolic Equivalents>4 Pertinent Negatives Pertinent Negatives: No Symptoms of GERD, No Major Cardiovascular Symptoms or Complaints and No Major Pulmonary Symptoms or Complaints Cardiac & Pulmonary Exam Cardiac Exam: Normal S1/S2 Heart Sounds Pulmonary Exam: Clear Bilateral Breath Sounds Implantable Cardiac Device Does patient have a Pacemaker or an ICD?: No Airway Exam Known Difficult Airway: No Mallampati Class: 3 Mouth Opening: Normal (> 3cm) Thyromental Distance: Greater than 3 cm Neck Range of Motion: Full ROM Neck Circumference: Normal Teeth Condition: Normal Dentition ASA Classification ASA Score: ASA 2 Emergency Case?: No NPO Status NPO Status: NPO Clears >2 hours, Solids >8 hours Anesthesia Plan Resuscitation Status: Full Code Anesthesia Technique: General Anesthesia Airway Planned: Natural Airway Monitors Used: Standard Monitors
[2024-08-17 07:14] VITALS: BMI 26.9
[2024-08-17 07:53] VITALS: BP 157/78; PULSE 75; RESP 18; TEMP 36.4; O2SAT 95
[2024-08-17 08:27] VITALS: BP 159/83; PULSE 71; RESP 18; TEMP 36.1; O2SAT 98
--- NOTE | 2024-08-17 08:58 | W.ANESPOSTOP ---
Postoperative Evaluation Date, Time and Location Date Performed: 08/17/24 Time Performed: 08:58 Patient Location: Day Surgery Unit Vital Signs Most Recent Imported Vital Signs: Most Recent Vital Signs Temp Pulse Resp BP Pulse Ox 36.1 C L 71 18 159/83 H 98 08/17/24 08:27 08/17/24 08:27 08/17/24 08:27 08/17/24 08:27 08/17/24 08:27 Pain Score Most Recent Pain Score: Most Recent Pain Score Pain Level 0 08/17/24 08:27 Assessment Mental Status: Awake (Alert & Oriented to Patient Baseline) Airway and Respiratory Function: Patent airway with normal (patient baseline) respiratory exam Cardiovascular Function: Hemodynamically Stable Hydration Status: Adequately Hydrated Nausea & Vomiting: No Nausea or Vomiting Pain: Pt. Denies Any Pain Peripheral Nerve Block: Patient did not receive a nerve block Postoperative Comments:: Pt is doing well, with good oxygen saturations. Does occasionally cough up yellow tinged sputum. Denies SOB, chills, Chest pain. Discussed aspiration and when to return to hospital. Will send home with aspiration information.
== END 2024-08-17 09:08 | disposition home or self-care (01) ==
LOC: SUR 06:13
PROVIDERS: PCP Nurse Practitioner Family; Visit Provider Surgery
PROC: 0DJD8ZZ Inspection of Lower Intestinal Tract, Via Natural or Artificial Opening Endoscopic (ICD-10-PCS; CPT 45378; principal; 2024-08-17 07:30)
DX: Z12.11 Encounter for screening for malignant neoplasm of colon (principal); I10 Essential (primary) hypertension; K57.30 Diverticulosis of large intestine without perforation or abscess without bleeding
CPT/HCPCS: 45378; J2704

== ENCOUNTER 2025-01-13 02:21 | Outpatient (CLI) | payer BC, SELFPAY ==
--- NOTE | 2025-01-13 07:15 | DI.RAD_ITS ---
Exam(s) RF JOINT INJ. FLUORO GUID RAD EXAM: RF JOINT INJ. FLUORO GUID RAD CLINICAL HISTORY: pain,ARTHRITIS RT GLENOHUMERAL JOINT,M19.011. The Patient has had persistent righ t shoulder pain. Noninvasive measures have been tried. To serve as both diagnostic and therapeutic, an injection under fluoroscopy was recommended. The [facility] of the [facility] and the patient elected to proceed. TECHNIQUE: 2D and realtime digital imaging was performed. CONTRAST MATERIAL: Water soluble contrast was utilized. COMPARISON: No exams were available for comparison FINDINGS: The Patient was greeted in the fluoroscopy room. The correct side was identified and the consent was reviewed with the patient and was signed. The patient was properly positioned on the fluoroscopy ta ble. The right shoulderwas then prepped and draped. The right shoulder injection starting point was identified by the bony landmarks and fluoroscopy. The skin and soft tissue in the tract of the inje ction was anesthetized with 1% Bupivacaine. A spinal needle was then inserted into the right shoulde r joint at the level of the glenohumeral joint under fluoroscopic guidance. A small amount of Omnipa que solution was injected to confirm intraarticular placement. Once confirmed, the right shoulder wa s injected with 5cc of a solution containing 0.5% Bupivacaiine and 40 mg of Depo-Medrol. A bandaid w as placed on the injection site. The patient tolerated the procedure well and left the department in good condition. IMPRESSION: Successful right shoulder injection. RADIATION DOSE DELIVERED: Ka,r=0.81 mGy Ka,r=0.81 mGy
[2025-01-13] MEDS: Normal Saline - Diluent 50 ML VIAL 8 ML IJ (12:01)
[2025-01-13] MEDS: methylPREDNISolone ACETATE 40 MG/ML VIAL IM (12:02)
[2025-01-13] MEDS: Bupivacaine 0.5% Pres-Free 10 ML VIAL IJ (12:02)
[2025-01-13] MEDS: Omnipaque 300 MG/ML 10 ML BTL 5 ML IJ (12:03)
== END 2025-01-13 02:41 ==
LOC: DI 02:21
PROVIDERS: PCP Nurse Practitioner Family; Visit Provider Student in an Organized Health Care Education/Training Program
DX: M19.011 Primary osteoarthritis, right shoulder (principal)
CPT/HCPCS: 20610; 77002; J0665; J1010

== ENCOUNTER 2025-06-29 01:28 | Outpatient (CLI) | payer BC, SELFPAY ==
--- NOTE | 2025-06-29 06:30 | DI.RAD_ITS ---
Exam(s) RF JOINT INJ. FLUORO GUID RAD EXAM: RF JOINT INJ. FLUORO GUID RAD CLINICAL HISTORY: Right shoulder pain,fluoro guided injection,arthritis rt glenohumeral joint. The Patient has had persistent right shoulder pain. Noninvasive measures have been tried. To serve as both diagnostic and therapeutic, an injection under fluoroscopy was recommended. The risks of the procedure were discussed with their Orthopedic provider and the patient elected to proceed. TECHNIQUE: 2D and realtime digital imaging was performed. CONTRAST MATERIAL: Water soluble contrast was utilized. COMPARISON: No exams were available for comparison FINDINGS: The Patient was greeted in the fluoroscopy room. The correct side was identified and the consent was reviewed with the patient and was signed. The patient was properly positioned on the fluoroscopy table. The right shoulderwas then prepped and draped. The right shoulder injection starting point was identified by the bony landmarks and fluoroscopy. The skin and soft tissue in the tract of the injection was anesthetized with 0.25% Bupivacaine. A spinal needle was then inserted into the right shoulder joint at the level of the glenohumeral joint under fluoroscopic guidance. A small amount of Omnipaque solution was injected to confirm intraarticular placement. Once confirmed, the right shoulder was injected with 5cc of a solution containing 0.25% Bupivacaine and 40 mg of Depo-Medrol. A bandaid was placed on the injection site. The patient tolerated the procedure well and left the department in good condition. IMPRESSION: Successful right shoulder injection. RADIATION DOSE DELIVERED: Ka,r=1.27 mGy
[2025-06-29] MEDS: methylPREDNISolone ACETATE 40 MG/ML VIAL IJ (09:35)
[2025-06-29] MEDS: Omnipaque 300 MG/ML 10 ML BTL 5 ML IJ (09:35)
[2025-06-29] MEDS: Bupivacaine 0.25% Pres-Free 10 ML VIAL 5 ML IJ (09:36)
[2025-06-29] MEDS: Normal Saline - Diluent 50 ML VIAL IJ (09:37)
== END 2025-06-29 01:48 ==
LOC: DI 01:29
PROVIDERS: PCP Nurse Practitioner Family; Visit Provider Student in an Organized Health Care Education/Training Program
DX: M19.011 Primary osteoarthritis, right shoulder (principal)
CPT/HCPCS: 20610; 77002; J0665; J1010